=== PATIENT | female | born 1980 | race Caucasian/White ===

== ENCOUNTER 2024-05-17 08:00 | Outpatient (RCR) | payer BC, SELFPAY ==
--- NOTE | 2024-05-17 09:50 | BH.NA_ITS ---
Physical Data Vital Signs Pulse Rate: 72 Blood Pressure: 136/88 Height/Weight Height: 1.6 m Weight:: 108.862 kg Weight in Pounds: 240.0 lbs Current Medication Compliance Medication Compliance Do you take your medication as prescribed?: Yes Nutritional History Appetite Nutritional Instructions: Describe your appetite:: Good Functional Assessment Sleep Pattern Describe any problems with sleeping: Client states she sleeps about 10 hours per night. Sensory/Communication Assess Communication Problems Do you have difficulty understanding what people are saying?: No Medical Problems/History Respiratory Conditions Respiratory: Other (See comments) (JAN with use of cpap) Neurological Conditions Neurological: Headaches Gastrointestinal Conditions Gastrointestinal: Other (See comments) (GERD) Pain Assessment Do you have acute or chronic pain?: No Surgical History Surgical History Have you had any surgeries? If so, list type and date:: No Substance Abuse Substance Abuse Please describe substance abuse in the last 30 days:: Client states she previously used to binge drink alcohol, but states she has been sober for 2 years. Client states she vapes nicotine and has for 6+ years used tobacco. Client states she used to vape THC but states she stopped 2 weeks ago. Client states she drinks about 2-3 drinks per day with caffeine, usually either coffee or pop. Mental Status Summary Mental Status Significant Findings/Observations on Appearance and Mood:: Client is alert and oriented x 4. Client is casually groomed. Client is cooperative with assessment. Client makes good eye contact. Client's voice has normal rate and volume. Client has a somewhat restricted affect. Client makes logical associations and has normal processing. Client denies delusions/hallucinations. Client reports some intrusive SI, but states she does not like having these thoughts and has no intent or plan. Suicide Assessment Suicidal Ideation Are you currently or have you been suicidal in the past?: Yes Suicidal Intentional Rating Scale (SIRS): Current suicidal thoughts/No plan/Contracts for safety (intrusive thoughts, no plan or intent) Physician Notification Past Psychiatric History MH Treatment Hx Past Psychiatric Medications:: Buspar, Celexa, Lexapro, Viibyrd, Strattera, Abilify, Seroquel, Zyprexa, Luvox, others Age of first mental health symptoms: Client states she was first on medication at age 16 for depression and panic attacks. Describe (age, circumstance, etc) any past hospitalizations: a residential program in October 2021- January 2022, one hospitalization in [place] in 2021 Current providers for mental health treatment (counselor, psychiatrist, family service caseworker, etc.): Bryan Barrera at [facility], Derrick Dillard CNP at [facility] for psychiatry Fall Risk Assessment Age Age: Less than 60 Mental Status Mental Status: Willing & able to ask for assistance when needed Physical Status Physical Status: No problems Impairments Impairments: None Elimination Elimination: Continent AND independent Gait or Balance Gait or Balance: Walks independently Hx of Falls History of falls in the past 6 months: No known history Medications/Substances Psychotropics:: Antidepressants and Mood stabilizers Medications/substances used within the past 24 hours or ordered to administer: 1-2 of the medications/substances listed above Total Score Total Points:: 1 RN Summary of Impressions Impressions Recommendations Impressions: Psychiatric Issues: major depressive disorder, generalized anxiety disorder Level of Care How do the client's current symptoms and functional deficits support need for this level of care?: Client was self-referred to IOP for recent panic attacks and anxiety. Client states she has been on leave from work for 3 weeks now related to panic attacks before or after work. Client states her medications have been adjusted by her outpatient provider in the last week, and she has not had a panic attack in the last week. Client states she has been sleeping a lot, not enjoying activities she usually does, has crying spells and is isolating herself at home. Client reports some intrusive suicidal thoughts but states I don't want to have them, I don't want to hurt myself. IOP will promote gains and prevent further decompensation while providing social support and skills training.
--- NOTE | 2024-05-17 10:15 | BH.SGPN.GN ---
Behaviors/Verbalizations/Mental Status: []Pt alert and oriented, neatly dressed and groomed. Eye contact good. Motor activity appropriate. Speech within normal limits. Affect congruent, mood anxious. Thoughts linear, logical, no signs of hallucinations or delusions. Client Response/Progress/Benefit: [] Pt took notes and contributed occasionally. Attentive during psychoeducation on growth mindset. Participated during the activity. Interactive group discussion on growth mindset in which group verbalized their current fixed mindsets and how they affect their mental health. Pt shared common fixed mindset thoughts they have which included I?m a failure, I should be better, no one really likes me, and I don?t fit in.? These thoughts lead to low self-esteem, anxiety and worry, and difficulty in relationships. Pt benefited from increased awareness of growth mindset and fixed thoughts and how fixed thoughts impact their mental health. Will continue IOP tx to prevent decompensation, maintain safety, and gain healthy coping skills. Narrative Note: []
--- NOTE | 2024-05-17 11:15 | BH.SGPN.GN ---
Behaviors/Verbalizations/Mental Status: []Pt alert and oriented, casually dressed and groomed. Eye contact good. Motor activity appropriate. Speech within normal limits. Affect congruent, mood depressed, anxious. Thoughts linear, logical, no signs of hallucinations or delusions. Client Response/Progress/Benefit: [] Pt was an active participant during activity and discussion. Pt did well to remain attentive and participate as group worked on identifying characteristics and benefits of adopting a growth mindset. Worked with fellow participants in reframing the example fixed thoughts into growth mindset thoughts. Pt worked on changing own fixed thought and reframed the thought to ?Each day I show up for treatment is a chance to feel better?. Pt appeared to benefit from challenging own thoughts and engaging in the activity. Pt will continue IOP tx to prevent decompensation, improve confidence and self-care, and gain healthy coping skills. ? Narrative Note: []
[2024-05-17 11:36] VITALS: BP 136/88; PULSE 72
--- NOTE | 2024-05-17 12:02 | BH.MTP_ITS ---
Master Treatment Plan Patient Information Program Physician:: Dr. Patti Alvarez Primary Therapist:: Padmini Matias Psychiatric Diagnoses Psychiatric Diagnoses:: Major depressive disorder, recurrent, severe without psychosis F 33.2; Generalized anxiety disorder; Panic disorder; Cluster B traits Diagnosis Code(s):: F 33.2 Estimated LOS Estimated LOS (in weeks):: 6 Problem/Goal #1 Problem/Goal #1 Stated Goal:: Pt will increase mood stability by reducing hopelessness, worthlessness, negative thinking patterns, and isolation. Description of Barriers: Pt reports negative self-talk with low self-esteem which reinforces avoidance and isolation. Pt also has not had energy or motiv ation to engage with friends and family. Pt reports knowledge of coping skills but difficulty remembering which ones to use. Functional Impact: Pt is a 44-year-old female with a history of MDD, AMRITA, and panic disorder who was referred to [facility] tx by herself due to worsening depression and anxiety which is impacting functioning. Pt is currently on FMLA due to her worsening symptoms which include panic attacks resulting in numerous call offs. Pt currently endorses poor sleep, low energy, low motivation, hopelessness, anhedonia, isolation, crying spells, and avoidance. Pt has passive thoughts of , but no SI or history of attempts. Pt's symptoms are interfering with her ability to complete ADLs and function at her baseline. Goal Relevant Strengths/Supports: Pt has outpatient therapy and psychiatry. 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 Objectives Objective #1: Stated Objective: Pt will learn and utilize 2-3 healthy coping strategies to better manage depressive symptoms and reduce suicidal ideations as shown by a decrease of DMS-5 symptoms for depression. Interventions: Through group and individual sessions, therapist will help pt identify triggers and warning signs of depression including emotional, physical, and behavioral changes. Therapist will teach pt various coping skills to manage symptoms and give pt tangible resources to use to regulate emotions. Therapist will use cognitive restructuring techniques and help pt gain awareness of negative thoughts that reinforce guilt and depression. Therapist will provide psychoeducation on maintenance cycles and help pt learn ways to break unhealthy maintenance cycles. Therapist will help pt incorporate behavioral activation and assist pt in setting SMART goals. Discharge Criteria: Pt will have met this goal when can report learning and using at least 2 coping skills to manage depressive symptoms and reduce isolation. Additionally, pt will have met this goal when pt's DSM-5 scores for depression decrease. Target Date: 06/28/24 Review Date: 06/07/24 Status: open Objective #2: Stated Objective: Pt will identify at least 2-3 negative self-talk messages used to reinforce negative core beliefs, worthlessness, and isolation and replace thoughts with balanced, realistic messages. Interventions: Therapist will help pt identify distorted, negative beliefs about self and replace with more realistic, affirmative messages. Therapist will use CBT and DBT to help pt increase insight to the connection between thoughts, emotions, and behaviors. Therapist will encourage pt to practice thought challenging. Discharge Criteria: Pt will have achieved this goal when can verbalize at least 2 cognitive distortions and effectively replace those thoughts with affirmative messages. Target Date: 06/28/24 Review Date: 06/07/24 Status: open Problem/Goal #2 Problem/Goal #2 Stated Goal:: Will reduce anxiety and panic while increasing ability to function on daily basis. Description of Barriers: Pt reports negative self-talk with low self-esteem which reinforces avoidance and isolation. Pt also has not had energy or motivation to engage with friends and family. Pt reports knowledge of coping skills but difficulty remembering which ones to use. Functional Impact: Pt is a 44-year-old female with a history of MDD, AMRITA, and panic disorder who was referred to [facility] tx by herself due to worsening depression and anxiety which is impacting functioning. Pt is currently on FMLA due to her worsening symptoms which include panic attacks resulting in numerous call offs. Pt currently endorses poor sleep, low energy, low motivation, hopelessness, anhedonia, isolation, crying spells, and avoidance. Pt has passive thoughts of , but no SI or history of attempts. Pt's symptoms are interfering with her ability to complete ADLs and function at her baseline. Goal Relevant Strengths/Supports: Pt has outpatient therapy and psychiatry. 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 Objectives Objective #1: Stated Objective: pt will learn and implement 2-3 calming skills to reduce overall anxiety and manage anxiety symptoms. Interventions: Therapist and group sessions will help client identify physiological warning signs of anxiety, increase awareness of thoughts that increase anxiety, and identify behaviors that reinforce anxious symptoms. Group and individual counseling will teach client calming skills to help manage anxious symptoms. Discharge Criteria: Pt will have achieved this goal when can verbalize at least 2 calming skills and reports skills successfully help reduce anxious symptoms. Target Date: 06/28/24 Review Date: 06/07/24 Status: open Objective #2: Stated Objective: Pt will increase ability to manage stressors and anxiety by gaining 2-3 emotional regulation skills. Interventions: Through group and individual therapy, pt will learn various coping skills to help manage stress and anxiety. Therapist will utilize DBT emotional regulation skills to increase awareness and give pt tools to more effectively manage anxiety. Therapist will provide psychoeducation on emotional regulation and help pt identify unhealthy coping skills she wants to change. Discharge Criteria: Pt will have accomplished this goal when can report improved ability to manage stressors and identify at least 2 emotional regulation skills. Target Date: 06/28/24 Review Date: 06/07/24 Status: open
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
--- NOTE | 2024-05-17 12:46 | BH.DR.ITP ---
Initial Treatment Plan Patient Information Visit Information: ADMISSION DATE: EXPECTED LOS: 4-6 weeks Problems/Symptoms Problem #1:: Depression Symptom:: Sadness, hopelessness, low motivation, anhedonia, biological disruption of sleep, low energy, guilt, passive thoughts of , recent thoughts of self-harm, passive, fleeting suicidal ideation Problem #2:: Anxiety Symptom:: Worry, rumination, recent panic attacks
--- NOTE | 2024-05-17 15:46 | BH.COMM_ITS ---
Communication Note Communication with Client Communication Note: Met with pt to complete initial paperwork and administer the CSSR-S screening and risk assessment. Pt is low-moderate risk as pt has history of suicidal ideations with thoughts of methods and she wrote a suicide note when she was young. However, pt has never had a suicide attempt and denies any active SI within the past month. Pt has passive SI within the past month, but no intent or plan. Pt reports she does not want to kill herself and describes her SI as intrusive thoughts that are ego-dystonic. History of self-harm by cutting, but she has never needed stitches. Pt has no access to weapons. Pt a Discussed case with Dr. Alvarez and pt will be admitted to [facility] tx with a diagnosis of MDD F33.2.
--- NOTE | 2024-05-19 09:01 | BH.SGPN.GN ---
Behaviors/Verbalizations/Mental Status: []Pt alert and oriented, casually dressed and groomed. Eye contact good. Motor activity appropriate. Speech within normal limits. Affect constricted. mood anxious. Thoughts linear, logical, no signs of hallucinations or delusions. Reviewed pt?s symptom tracker, no risk for suicidal ideation, plan, or intent. Client Response/Progress/Benefit: []Pt responded well to session, attentive and engaged. Pt stated feeling stressed because she has a to-do list that can easily become overwhelming for her. Pt stated mental health positive as going to therapy yesterday improved her mood. Pt reported additional positive as taking a shower yesterday. Pt seemed to benefit from support from peers. Pt will continue IOP tx to increase healthy coping skills, challenge distortions, and prevent decompensation.
--- NOTE | 2024-05-19 10:15 | BH.SGPN.GN ---
Behaviors/Verbalizations/Mental Status: [] Eye contact is good. Motor activity is appropriate. Appearance is casual. Speech is Appropriate. Mood is depressed and anxious. Affect is congruent. Thoughts are linear and logical. No evidence of psychosis. Client Response/Progress/Benefit: [] Client receptive to session AEB listening attentively to others, providing input, and taking notes. Contributed and attentive throughout psychoeducation on the cognitive triangle and maintenance cycles. Attentive during group discussion reviewing the impact of daily activities and behaviors in either reinforcing unhealthy maintenance cycles and depression or assisting in reducing symptoms (?down? vs ?up? activities). Client identified personal ?down? activities they engage in as: excessive sleep, isolation, binge watching tv, and avoiding obligations. Attentive during discussion on Common ?Up? activities client identified theirs to include: completing hygiene routine and engaging with others. Appeared to benefit from increased awareness of current behaviors and impact these have on mental health. Will continue in IOP to stabilize mood, prevent decompensation, and improve functioning. Narrative Note: []
--- NOTE | 2024-05-19 11:15 | BH.SGPN.GN ---
Behaviors/Verbalizations/Mental Status: []Eye contact is good. Motor activity is appropriate. Appearance is neat. Speech is Appropriate. Mood is dysthymic. Affect is congruent. Thoughts are linear and logical. No evidence of psychosis. Client Response/Progress/Benefit: []Pt responded well to session, attentive and engaged in group discussions and activity. Group discussed values and the benefits that knowing one's values can have on one's mental health. Pt explored own values and identified personal top values. Pt stated a personally important value is family. Pt set a goal to make plans with her family member to get a pedicure this weekend. Pt also reported benefitting from the activity and the group encouragement today. Will continue in IOP to prevent decompensation, improve daily functioning, and increase application of healthy coping skills. Narrative Note: []
--- NOTE | 2024-05-21 09:00 | BH.SGPN.GN ---
Behaviors/Verbalizations/Mental Status: [] Pt alert and oriented, neatly dressed and groomed. Eye contact good. Motor activity appropriate. Speech within normal limits. Affect constricted mood anxious. Thoughts linear, logical, no signs of hallucinations or delusions. Reviewed pt?s symptom tracker, no risk for suicidal ideation, plan, or intent 05/21/24 Client Response/Progress/Benefit: []Pt responded well to session, attentive and engaged. Pt reports feeling anxious this morning. Pt reports wins today as using opposite action and getting to IOP each day she was signed up this week. Pt is doing well in IOP and working towards tx goals. Pt's stressor today is ongoing anxiety symptoms and nightmares. Pt appeared to benefit from reflecting on application of healthy coping skills and connecting with peers. Pt will continue IOP tx to prevent decompensation, improve daily functioning, and increase healthy coping skills. Narrative Note: []
--- NOTE | 2024-05-21 10:05 | BH.SGPN.GN ---
Behaviors/Verbalizations/Mental Status: [] Client alert and oriented, casually dressed and groomed. Eye contact good. Motor activity appropriate. Speech within normal limits. Affect congruent, mood euthymic. Thoughts linear, logical, no signs of hallucinations or delusions. Client Response/Progress/Benefit: []Client responded well to session, contributing to discussion and engaged during the activity. Attentive during discussion on the quote. Group identified the benefits of change which included: confidence better relationships, and improved mental health. Worked with the group to identify barriers to change, which included: anxiety and fear, confusion, external variables, and negative thinking. Client also reported reflected on past negative experiences can keep people from making changes. Client participated along with group in activity where they identified and discussed the emotions related to change. Benefited from increased awareness and understanding of emotions, benefits, and barriers related to change. Will continue IOP tx to increase emotional regulation skills and prevent decompensation. Narrative Note: [] Behaviors/Verbalizations/Mental Status: [] Client alert and oriented, casually dressed and groomed. Eye contact good. Motor activity appropriate. Speech within normal limits. Affect congruent, mood euthymic. Thoughts linear, logical, no signs of hallucinations or delusions. Client Response/Progress/Benefit: []Client responded well to session, contributing to discussion and engaged during the activity. Attentive during discussion on the quote. Group identified the benefits of change which included: confidence better relationships, and improved mental health. Worked with the group to identify barriers to change, which included: anxiety and fear, confusion, external variables, and negative thinking. Client also reported reflected on past negative experiences can keep people from making changes. Client participated along with group in activity where they identified and discussed the emotions related to change. Benefited from increased awareness and understanding of emotions, benefits, and barriers related to change. Will continue IOP tx to increase emotional regulation skills and prevent decompensation. Narrative Note: []
--- NOTE | 2024-05-21 12:02 | BH.MDN ---
Multi-Disciplinary Note Note 30-min Individual: Time Started:: 11:20 Date: 05/21/24 Purpose of session/treatment goals addressed:: To gather information on pt's current stressors, symptoms, triggers, history, and tx goals. Another goal was to build rapport and provide emotional support. Eye Contact:: Fair Motor Activity:: Appropriate Appearance:: Casual Speech:: Appropriate Mood:: Anxious and Depressed Affect:: Congruent Thoughts:: Linear, Logical and No evidence of hallucinations/delusions noted Staff Interventions:: rapport building, strengths perspective, treatment planning and goal setting Client Response:: Pt responded well to session, open to meeting with therapist. Pt shared she has had therapy in the past and found it helpful. Pt shared the triggers contributing to her worsening mental health over the past year which included being the caregiver for her mother, her dog passing away, and moving from [place] to [place]. Pt shared she has noticed that she is comparing herself to others her age and pt feels shame and upset that she did not follow the path laid out for me. Pt said this path would be getting and having kids. Pt shared she does not think she wants kids, but she finds herself feeling sad and overwhelmed when she sees other people with families. Pt recently had a crying episode when her stepsister announced her . Pt stated in general I have big reactions to small things and pt wants to learn how to manage this better. Pt also wants to work on gaining a community, reducing anxiety, refreshing skills, getting back into hobbies (crafting, reading, and photography), and increasing self-esteem. Pt shared in the past she has struggled with challenging negative thinking because it feels fake but pt is open to learning different techniques. Pt's homework is to write out her maintenance cycles for anxiety and depression. Risks/Concerns:: Pt has chronic SI that is passive, but she denies any SI, plan, or intent as of 05/21/24. Progress Toward Goals/Plan:: Pt's first week of IOP tx and pt feels she will benefit from not being alone and refreshing skills. Pt has an outpatient therapist she has been seeing biweekly for the past 4-6 weeks, but she feels like she is still struggling which is what led to IOP. Pt's symptoms are impacting her ability to enjoy things, be social, and perform tasks at work. Pt will continue IOP tx to prevent decompensation, improve daily functioning, and increase distress tolerance skills. Time Stopped:: 11:50
--- NOTE | 2024-05-24 09:05 | BH.SGPN.GN ---
Behaviors/Verbalizations/Mental Status: [] Eye contact is good. Motor activity is appropriate. Appearance is casual. Speech is Appropriate. Mood is anxious. Affect is congruent. Thoughts are linear and logical. No evidence of psychosis. Reviewed daily check in sheet and no reports of suicidal ideations or intent. Client Response/Progress/Benefit: [] Pt partiicpated when prompted. Attentive. Emotion for today is anxious. Identifies increased intrusive thoughts and mental health struggles. Able to identify skills that she utilized as well as obstacles to attempting certain strategies. Pt's check-in for group was short. Feeling hopeless and upset that she had to extend her FMLA and begin IOP as her mental health continue to impact her functioning. Limited progress noted. Benefited from group support, encouragement, and feedback. Will continue in IOP to maintain safety, prevent decompensation, increase healthy coping, and improve functioning. Narrative Note: []
--- NOTE | 2024-05-24 10:10 | BH.SGPN.GN ---
Behaviors/Verbalizations/Mental Status: []Eye contact is good. Motor activity is appropriate. Appearance is casual. Speech is Appropriate. Mood is anxious. Affect is constricted. Thoughts are linear and logical. No evidence of psychosis. Client Response/Progress/Benefit: [] Pt was an active participant in activity and taking notes during group discussion. Attentive during psychoeducation and interactive discussion on coping skills included why people use unhealthy skills. Group came up with list of unhealthy coping skills and pt identified personal ones as isolation and avoidance. Group discussed the effects of how unhealthy coping skills can impact mental health in a negative way. Participated during experiential activity and was able to relate the activity to group topic regarding the benefits of developing strong internal and external support system. Benefited from increased understanding of unhealthy coping skills and the need for developing healthy internal and external coping skills. Pt will continue IOP tx to improve distress tolerance, increase healthy coping, and prevent decompensation.
--- NOTE | 2024-05-24 11:15 | BH.SGPN.GN ---
Behaviors/Verbalizations/Mental Status: []Pt alert and oriented, casually dressed and groomed. Eye contact good. Motor activity appropriate. Speech within normal limits. Affect congruent, mood anxious and depressed. Thoughts linear, logical, no signs of hallucinations or delusions. Client Response/Progress/Benefit: [] Pt responded well to session, taking notes and contributing when prompted. Group discussed the different categories of coping skills which included distraction, emotional release, grounding, self-love, and thought challenging. Pt participated in creating a coping skills ?menu? from the five categories of coping skills. Pt's coping skill menu included: crafting, playing with miguel, giving herself credit, and decisional balance tool. Appeared to benefit from increasing repertoire of healthy coping skills. Will continue IOP to improve view of self, challenge distortions, and prevent decompensation. Narrative Note: []
--- NOTE | 2024-05-26 09:01 | BH.SGPN.GN ---
Behaviors/Verbalizations/Mental Status: [] Eye contact is fair. Motor activity is appropriate. Appearance is casual. Speech is Appropriate. Mood anxious. Affect is constricted. Thoughts are linear and logical. No evidence of psychosis. Reviewed daily check in sheet and no reports of suicidal ideations or intent. Client Response/Progress/Benefit: [] Pt was an active participant in group discussions. Attentive. Client stated current stressor is trying to figure out disability paperwork which she reported has been incredibly frustrating. Client stated feeling anxious, frustrated xochitl tired this morning. Client stated mental health positive as going to therapy yesterday which went better than she had thought. Client stated additional mental health positive as going to the store yesterday for her own enjoyment which is something she hasn't done in a long time. Client stated she allowed herself to explore different aisles instead of rushing she just get what she needed. Benefited from group support, encouragement, and feedback. Will continue in IOP to increase consistent use of healthy coping skills, challenge distorted thoughts, and prevent decompensation.
--- NOTE | 2024-05-26 10:10 | BH.SGPN.GN ---
Behaviors/Verbalizations/Mental Status: [] Eye contact is good. Motor activity is appropriate. Appearance is casual. Speech is Appropriate. Mood is anxious and depressed. Affect is congruent. Thoughts are linear and logical. No evidence of psychosis Client Response/Progress/Benefit: [] Client was an active participant during interactive group discussions. Attentive during psychoeducation on the six types of boundaries (physical, emotional, intellectual, sexual, time, and material) AEB note-taking and input in group discussions. Along with peers contributed to interactive discussion on defining what a boundary is in mental health. Client along with peers identified challenges to setting boundaries which included; fear of conflict, being uncomfortable, believing they are being rude or mean, etc. Reports struggling with fear of rejection or not knowing how to set it. Client along with peers identified the benefits to setting boundaries such as healthier relationships, stronger sense of self, and improved confidence. Client benefited from increased awareness and insight on the importance/benefit to setting healthy boundaries. Will continue in IOP to prevent decompensation, increase healthy coping skills and self-confidence, and improve functioning. Narrative Note: []
--- NOTE | 2024-05-26 11:15 | BH.SGPN.GN ---
Behaviors/Verbalizations/Mental Status: [] Eye contact is good. Motor activity is appropriate. Appearance is casual. Speech is Appropriate. Mood is depressed. Affect is congruent. Thoughts are linear and logical. No evidence of psychosis. Client Response/Progress/Benefit: []Pt responded well to session AEB listening attentively to peers, providing some input, as well as taking notes throughout. Pt contributed throughout psychoeducation on different boundary setting styles. Participated in group discussion brainstorming various strategies for improving healthy boundary settings. Pt reported wanting to work on self-reflecting so pt can have more self-awareness of her own boundaries which will make it easier to verbalize to others. ?Seemed to benefit from increased awareness of how different boundary styles can impact mental health. Will continue IOP tx to prevent decompensation, improve daily functioning, and increase application of heathy coping skills. Narrative Note: []
--- NOTE | 2024-05-28 09:05 | BH.SGPN.GN ---
Behaviors/Verbalizations/Mental Status: []Pt alert and oriented, neatly dressed and groomed. Eye contact fair. Motor activity appropriate. Speech within normal limits. Affect flat. mood depressed and irritable. Thoughts linear, logical, no signs of hallucinations or delusions. Reviewed pt?s symptom tracker, no risk for suicidal ideation, plan, or intent 05/28/24 Client Response/Progress/Benefit: []Pt responded well to session, attentive and engaged. Pt reports feeling irritable and frustrated this morning which pt feels is caused by being on steroids. Pt acknowledged that when she is irritable she is more negative with herself. Pt stated wins today as showing up to IOP when she wanted to cancel and getting her craft area set up so she can get back into her old hobbies. Pt's stressor is feeling irritable and having difficulty managing this emotion. Pt appeared to benefit from reflecting on application of coping skills and connecting with peers. Pt will continue IOP tx to prevent decompensation, improve daily functioning, and increase distress tolerance skills. Narrative Note: []
--- NOTE | 2024-05-28 10:15 | BH.SGPN.GN ---
Behaviors/Verbalizations/Mental Status: [] Eye contact is good. Motor activity is appropriate. Appearance is casual. Speech is Appropriate. Mood is depressed and anxious. Affect is congruent. Thoughts are linear and logical. No evidence of psychosis. Client Response/Progress/Benefit: [] Attentive and taking notes throughout the group discussions. Attentive during psychoeducation on the 4 communication styles (Passive, Passive-Aggressive, Aggressive, and Assertive) and the obstacles to effective communication. Attentive during interactive discussion on the benefits of communicating effectively, as well as the benefits and disadvantages to the different communication styles. Reports connecting most with passive styles which results in pt not having her needs met. Benefited from increased understanding of communication styles and how these can impact effective communication. Will continue in IOP to prevent decompensation, increase healthy coping, and improve functioning. Narrative Note: []
--- NOTE | 2024-05-28 13:48 | BH.MDN ---
Multi-Disciplinary Note Note 45-min Individual: Time Started:: 11:15 Date: 05/28/24 Purpose of session/treatment goals addressed:: To work on goal #2 of pt's tx plan by increasing emotional regulation and distress tolerance skills. Eye Contact:: Good Motor Activity:: Appropriate Appearance:: Neat Speech:: Appropriate Mood:: Anxious and Depressed Affect:: Constricted Thoughts:: Linear, Logical and No evidence of hallucinations/delusions noted Staff Interventions:: thought challenging, CBT techniques, mindfulness skills, strengths perspective, goal setting, taught coping skills (acceptance skills) and other (DBT techniques) Client Response:: Pt responded well to session, open to meeting with therapist. Last session, pt identified tx goals for IOP which centered around pt finding more confidence and self-esteem, regulating her emotions, and feeling prepared to return to work. Pt shared what triggered her most recent depressive episode was not fitting in with the rest of my family and my peers in terms of life milestones (kids, family, etc). Pt finds she often criticizes herself and gets upset with herself even when she feels certain emotions. Pt stated she will get frustrated with herself for feeling anything but happy really. Pt reported this could be from her upbringing and growing up in a household where anger, anxiety, and sadness were either not managed well or ignored. Pt identified some of the emotions she has a personal stigma towards feeling including anger, anxiety, boredom, and sadness. Pt did well with the chain analysis and we discussed how judging these emotions leads to lack of acceptance and ultimately pt being stuck in the emotion longer. Pt could identify several recent examples of how her internalization of being angry led to her being upset all day and then self-criticism. Pt also did a chain analysis for anxiety and sadness. Pt reports this helped her see what behaviors she can change to help pt prevent more unnecessary stress from occurring in her chain analysis and creating a healthier path. Pt came up with ideas for when she is sad including opposite action and getting out of the house. 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 Risks/Concerns:: Pt denies any active SI, plan, or intent as of 05/28/24. Progress Toward Goals/Plan:: Pt's progress is mild as pt recently started IOP tx. Pt is showing progress with her engagement and contributions during group and individual sessions. Pt reports benefitting from the group environment and being around others who understand mental health. Pt also reports trying to apply the coping skills outside of IOP. Pt's symptoms of depression, anxiety, and [id number] continue to impact pt on a daily basis. Pt's biggest stressors are returning to work, regulating her emotions, fitting in with her family, and internal stigma. Pt will continue IOP tx to prevent decompensation, improve daily functioning, and increase use of healthy coping skills. Time Stopped:: 12:00
== END 2024-05-30 23:59 ==
LOC: BHIOP 08:00
PROVIDERS: Visit Provider Psychiatry & Neurology Psychiatry
DX: F33.2 Major depressive disorder, recurrent severe without psychotic features (principal)
CPT/HCPCS: S9480; 90832; 90834; 90853

== ENCOUNTER 2024-05-31 07:15 | Outpatient (RCR) | payer BC, SELFPAY ==
[2024-05-31 00:26] VITALS: BP 136/88; PULSE 72
--- NOTE | 2024-05-31 09:00 | BH.SGPN.GN ---
Behaviors/Verbalizations/Mental Status: [] Eye contact is good. Motor activity is appropriate. Appearance is casual. Speech is Appropriate. Mood is depressed. Affect is flat. Thoughts are linear and logical. No evidence of psychosis. Reviewed daily check in sheet and pt reports 1.5 for suicidal thoughts and 0/5 for intent. Client Response/Progress/Benefit: [] Pt participated when prompted. Attentive. Daily symptom tracker notes 4/5 for depression and 3/5 for anxiety/agitation. Pt states I'm not making progress. Elaborated on negative self-talk as well as depression. Frustrated, irritable , and anxious feeling as if I'm not getting well. Catastrophizing about her job and her future. No progress noted. Group provided support, empathy, and feedback. Peers worked to reframe and challenging cognitive distortions which was beneficial. Pt was able to see progress towards the end of the group with the help of peer assitance. Will continue in IOP to maintain safety, prevent decompensation, and stabilize mood. Narrative Note: []
--- NOTE | 2024-05-31 10:10 | BH.SGPN.GN ---
Behaviors/Verbalizations/Mental Status: [] Pt alert and oriented, appropriate grooming/appearance. Eye contact good. Motor activity appropriate. Speech within normal limits. Affect congruent, mood euthymic. Thoughts linear, logical, no signs of hallucinations or delusions. Client Response/Progress/Benefit: [] Pt was an active participant in group discussions. Attentive during psychoeducation. Contributed during interactive discussions in which peers attempted to define crisis. Group identified examples of potential crisis. Group also worked together to identify unhealthy responses to crisis which included lashing out, isolation, self-harm, substance abuse, and sleep disturbances. Pt identified personal warning signs as racing thoughts and tearfulness. Benefited from increased understanding of crisis and awareness of personal responses to crisis. Pt will continue IOP tx to increasing healthy coping skills and prevent decompensation. Narrative Note: []
--- NOTE | 2024-05-31 11:10 | BH.SGPN.GN ---
Behaviors/Verbalizations/Mental Status: [] Pt alert and oriented, appropriate grooming/appearance. Eye contact good. Motor activity appropriate. Speech within normal limits. Affect congruent, mood euthymic. Thoughts linear, logical, no signs of hallucinations or delusions. Client Response/Progress/Benefit: [] Pt was an active participant in group discussions. Attentive during psychoeducation. In small group pt along with peers developed an active plan for their crisis warning signs. Pt identified three crisis warning signs as well as an action plan for each. One crisis warning sign was racing thoughts. Pt identified coping skills to help with this such as: deep breaths, guided meditation, support person, and identification of cognitive distortions. Benefited from increased awareness of crisis warning signs and by developing crisis intervention strategies. Will continue in IOP to prevent decompensation, increase health thought processes, and gain healthy coping skills. Narrative Note: []
--- NOTE | 2024-06-02 09:05 | BH.SGPN.GN ---
Behaviors/Verbalizations/Mental Status: [] Eye contact is good. Motor activity is appropriate. Appearance is casual. Speech is Appropriate. Mood is depressed. Affect is flat. Thoughts are linear and logical. No evidence of psychosis. Reviewed daily check in sheet and pt reports 1/5 for suicidal ideations and 0/5 for intent. Client Response/Progress/Benefit: [] Pt participated when prompted. Attentive. Daily symptom tracker notes 2/5 for depression and anxiety. Also notes 1/5 for self-harm urges. Pt reports that she is struggling to ?connect with people?. ? Something is wrong with my brain?. Hopelessness regarding her mental health. Thoughts that she will never get better or return to work. She continues to report attempting to work on mental health daily. She opened up regarding her mental health with her father and ?had a good conversation?. Attempting to be more vulnerable and seeking support/help. Limited progress noted. Benefited from group support, encouragement, and feedback. Will continue in IOP to maintain safety, prevent decompensation, and improve functioning to return to work. Narrative Note: []
--- NOTE | 2024-06-02 10:10 | BH.SGPN.GN ---
Behaviors/Verbalizations/Mental Status: [] Eye contact is fair. Motor activity is appropriate. Appearance is casual. Speech is Appropriate. Mood is dysthymic. Affect is constricted. Thoughts are linear and logical. No evidence of psychosis. Client Response/Progress/Benefit: [] Pt receptive to session AEB contributing to small group discussion, as well as listening attentively to others, and taking notes. Worked with group to brainstorm the positive and negative aspects of stress on physical and mental health as well as the impact of distress on performance, relationships, and mental health. Pt shared her top stressors to be: work, daily obligations, and mental health struggles. Shared when feeling overwhelmed with stress she tends to isolate, avoid, and talk negatively to self. Benefited from increased awareness of positive and negative stress as well as how stress impact individuals. Will continue in IOP to increase healthy coping, challenge distortions, and prevent decompensation.
--- NOTE | 2024-06-02 11:10 | BH.SGPN.GN ---
Behaviors/Verbalizations/Mental Status: []Pt alert and oriented, casually dressed and groomed. Eye contact good. Motor activity appropriate. Speech within normal limits. Affect congruent, mood anxious, agitated. Thoughts linear, logical, no signs of hallucinations or delusions. Client Response/Progress/Benefit: [] Pt was an attentive and active participant in group discussions and experiential activity, doing well to regulate their emotions throughout the activity and work with peers. Attentive during psychoeducation on the 4 A's (Avoid, adapt, alter, accept) of coping with stress. Shared that they would benefit most from altering her expectations of herself and work towards accepting what is within her control and what is not regarding her current stressors. Was able to identify the connection between the experiential activity and utilization of stress management skills. Benefited from increased awareness of stress management strategies. Pt will continue IOP tx to prevent decompensation, improve daily functioning, and increase self-compassionate responses. Narrative Note: []
--- NOTE | 2024-06-04 10:10 | BH.SGPN.GN ---
Behaviors/Verbalizations/Mental Status: []Eye contact is fair. Motor activity is appropriate. Appearance is casual. Speech is Appropriate. Mood is dysthymic. Affect is constricted. Thoughts are linear and logical. No evidence of psychosis. Client Response/Progress/Benefit: [] Pt was an engaged participant AEB listening attentively to others, taking notes, and providing feedback in small group discussions. Attentive during psychoeducation AEB by note taking and providing some input. Pt worked along with peers in small groups to define inappropriate guilt and appropriate guilt. Interactive discussion on examples of both inappropriate and appropriate guilt. Pt able to connect impact inappropriate guilt can have on MH. Pt gave an example of having inappropriate guilt about taking on responsibility for her mom's emotions. Benefited from increased awareness of guilt and the differences between appropriate and inappropriate guilt. Will continue in IOP to challenge distorted thoughts, improve confidence, and prevent decompensation.
--- NOTE | 2024-06-04 11:15 | BH.SGPN.GN ---
Behaviors/Verbalizations/Mental Status: []Pt alert and oriented, casually dressed and groomed. Eye contact poor. Motor activity appropriate. Speech within normal limits. Affect congruent, mood calm. Thoughts linear, logical, no signs of hallucinations or delusions. Client Response/Progress/Benefit: []Pt engaged participant AEB listening attentively to others and providing input throughout group. Pt worked within their small group to identify strategies to manage inappropriate guilt. Pt worked with group to identify strategies for both appropriate and inappropriate guilt. Pt selected challenging emotional reasoning when she feels inappropriate guilt by reminding herself ?just because I feel this doesn?t mean I did something wrong.? Pt seemed to benefit from learning about strategies to manage appropriate and inappropriate guilt. Pt will continue IOP tx to help pt get back to work, reduce negative thinking patterns, and improve mood stability. Narrative Note: []
--- NOTE | 2024-06-04 14:52 | BH.MDN_ITS ---
Multi-Disciplinary Note Note 30-min Individual: Time Started:: 09:15 Date: 06/04/24 Purpose of session/treatment goals addressed:: To work on combatting distorted thinking patterns and increasing self-compassion through dialectical thinking. Eye Contact:: Good Motor Activity:: Appropriate Appearance:: Neat Speech:: Appropriate Mood:: Euthymic and Anxious Affect:: Congruent Thoughts:: Linear, Logical and No evidence of hallucinations/delusions noted Staff Interventions:: thought challenging, CBT techniques, mindfulness skills (discussion of mindfully feeling emotions but not over-identifying.), strengths perspective and other (dialectical thinking practice.) Client Response:: Pt responded well to session, open to meeting with therapist. Pt reports she has been struggling with feeling certain emotion without becoming angry or lashing out at herself. The emotions pt identified included anger, boredom, sadness, and anxiety. Discussed why these emotions are hard for pt to express, which pt responded is due to her upbringing. Pt shared these emotions were either ignored, viewed as bad, or resulted in some form of conflict. Pt reports she tends to feel shame when she feels these emotions which then leads to more depression, anxiety, and anger. Discussed pt's current response to these emotions and then how she would like to respond to these in the future. Pt receptive to learning about mindfully feeling emotions instead of over-identifying with them which maintains unhealthy cycles. Discussed the self- talk pt can use when she feels anger, such as I'm allowed to feel anger, it's not a bad feeling. Pt also reminded to utilize coping skills like deep breathing, opposite action, and being vulnerable to be avoid over-identifying with her emotions. Also discussed how pt can be a good person, good caregiver, and still feel frustrated with her mother and her situation. pt receptive to practicing these self-talk skills and learning more about not judging her emotions. Pt also discussed her worries about going back to work and needing accommodations. Pt receptive to reflecting for homework on possible accommodations she might want such as getting more breaks. Risks/Concerns:: Pt denies any active SI, plan, or intent. Progress Toward Goals/Plan:: Progress mild as pt reports difficulty challenging negative self-talk which reinforces depression and anger. Pt is consistently coming to IOP and she takes extensive notes which could help pt make progress. Pt is also receptive to feedback from peers and in individual sessions pt completes homework. Pt is doing well with applying coping skills outside of IOP which is positive. Pt's symptoms continue to impact her overall functioning including her ability to regulate emotions with her mother. Pt feels she will need accommodations when she returns to work and this therapist agrees. Pt will continue IOP tx to prevent decompensation, improve daily functioning, and increase distress tolerance skills. Time Stopped:: 09:50
--- NOTE | 2024-06-07 09:05 | BH.SGPN.GN ---
Behaviors/Verbalizations/Mental Status: [] Eye contact fair to good. Motor activity appropriate. Speech within normal limits. Affect congruent, mood dysthymic, agitated. Thoughts linear, logical, no signs of hallucinations or delusions. Reviewed client?s symptom tracker, SI reported as 1/5 which is within baseline, denies plan, or intent as of 06/07/2024. Client Response/Progress/Benefit: [] Client receptive of session, attentive and willing to process with group. Reports sx of anxiety ?(3/5) and depression (3/5) and agitation (3/5) per daily sx tracker. ?Identified mental health ?wins? as challenging herself to use several skills when out with her mom throughout the weekend. Reports managing her emotions during these times is an ongoing stressor as she is struggling with becoming frustrated while providing support for her mom who has several physical limitations. Pt noted guilt when feeling frustrated about this but is doing well to work on self-compassion and challenge inappropriate guilt. Provided an example of not allowing herself to say sorry more than once when accidentally spilling something while at lunch with her mother. Indicates in the past she would have apologized profusely. Additional win noted as challenging herself to be proactive and contact the pharmacy about a medication issue to avoid an additional unnecessary stressor down the road. Reports this was anxiety inducing but she was proud of herself for doing the uncomfortable thing. Receptive of encouragement and support from the group, as well as identified a desire to get back into hobbies she enjoys as self-care has recently been lacking. Recommended continued IOP tx to further improve mood stability, promote skill building and application, as well as prevent decompensation. Narrative Note: []
--- NOTE | 2024-06-07 10:11 | BH.SGPN.GN ---
Behaviors/Verbalizations/Mental Status: [] Pt alert and oriented, casually dressed and groomed. Eye contact good. Motor activity appropriate. Speech within normal limits. Affect full, mood euthymic. Thoughts linear, logical, no signs of hallucinations or delusions. Client Response/Progress/Benefit: [] Pt participated in group discussion. Group worked together to identify benefits of healthy relationships which included encouragement, motivation, accountability, connectedness and minimized stress. Group identified factors that lead to unhealthy relationships which included low self esteem, trauma, lack of communication, parent's relationships growing up, and substance use. Benefited from increased insight and awareness of benefits of healthy relationships and factors that contribute to unhealthy relationships. Will continue in IOP to increase consistent use of healthy coping skills, challenge negative thoughts, and prevent decompensation. Narrative Note: [] Behaviors/Verbalizations/Mental Status: [] Pt alert and oriented, casually dressed and groomed. Eye contact good. Motor activity appropriate. Speech within normal limits. Affect full, mood euthymic. Thoughts linear, logical, no signs of hallucinations or delusions. Client Response/Progress/Benefit: [] Pt participated in group discussion. Group worked together to identify benefits of healthy relationships which included encouragement, motivation, accountability, connectedness and minimized stress. Group identified factors that lead to unhealthy relationships which included low self esteem, trauma, lack of communication, parent's relationships growing up, and substance use. Benefited from increased insight and awareness of benefits of healthy relationships and factors that contribute to unhealthy relationships. Will continue in IOP to increase consistent use of healthy coping skills, challenge negative thoughts, and prevent decompensation. Narrative Note: []
--- NOTE | 2024-06-07 11:11 | BH.SGPN.GN ---
Behaviors/Verbalizations/Mental Status: [] Pt alert and oriented, casually dressed and groomed. Eye contact fair. Motor activity appropriate. Speech within normal limits. Affect full, mood euthymic, Thoughts linear, logical, no signs of hallucinations or delusions. Client Response/Progress/Benefit: [] Client responded well to session, engaged and taking notes throughout. Worked with group to connect components of the experiential activity with characteristics of healthy and unhealthy relationships. Attentive during psychoeducation about characteristics of healthy, unhealthy, and abusive relationships. Client reported she would like to continue to improve with communication in healthier ways with all of her relationships. Appeared to benefit from identifying current healthy relationship attributes and an area client wants to work on to build healthier relationships. Client to continue IOP to increase healthy coping skills, increase overall functioning, and prevent decompensation. Narrative Note: []
--- NOTE | 2024-06-09 11:05 | BH.SGPN.GN ---
Behaviors/Verbalizations/Mental Status: []Pt alert and oriented, neatly dressed and groomed. Eye contact good. Motor activity appropriate. Speech within normal limits. Affect congruent, mood depressed. Thoughts linear, logical, no signs of hallucinations or delusions. Client Response/Progress/Benefit: []Pt responded well to session, engaged in the experiential activity and attentive throughout group processing. Pt reported fear of failure has kept pt from going after jobs she wants. Pt completed fear of failure worksheet and was able to identify thoughts and behaviors that reinforce personal fear of failure including not feeling good enough, avoidance, and playing it safe. ?Pt participated in group discussion regarding strategies to overcome fear of failure. Identified wanting to work on asking for help and challenging negative thoughts. Appeared to benefit from increased knowledge of strategies to combat fear of failure and gaining self-awareness. Pt will continue IOP tx to promote mood stability, combat distortions, and improve emotional regulation skills. Narrative Note: []
--- NOTE | 2024-06-09 11:33 | PCM.BH.PN ---
Progress Note Progress Note: History of Present Illness/Interim History: Patient is a 44-year-old single, female with a history of depression, anxiety and PTSD who is seen in follow-up at the [facility] health [facility] where she is being treated for depression and anxiety. 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 I last saw the patient 3 weeks ago and at that time no medication changes were made as the Pristiq had been increased 1 week prior to that visit. According to the staff the patient has been consistent in her attendance and engaged in the program. She has made slight progress but still has a lot of negative self talk and rumination that have caused her anxiety and depression to persist somewhat. She has had thoughts of self-harm recently but says she only rarely now has suicidal ideation. She wakes up off-and-on during the night but gets back to sleep but states that she does not feel rested because she is waking up so much. He does have sleep apnea and is using her CPAP. The patient states that she still having panic attacks, avoidance and occasional hopelessness. She states last week she had 2 panic attacks and 1 episode of self-harm this morning where she stabbed her arm with a fork on her left forearm. It is visible and does not appear to be deep puncture wounds from the fork. She still has crying episodes and occasional hopelessness. She no longer is having passive thoughts of . She has a history of chronic, passive suicidal ideation and chronic thoughts of self-harm. She still denies active suicidal ideation, plan for suicide, homicidal ideation, hallucinations or delusions. Current Psychiatric Medications: [] Pristiq 100 mg p.o. daily (increased dose 1 month ago); Lamictal 25 mg twice daily; clonidine 0.2 mg twice daily; Klonopin 0.5 mg twice daily but she only takes it either once twice or 0 times a day. Mental Status Examination: [] The patient is an obese, female who appears normal for stated age and is casually dressed and groomed with good hygiene. She has no psychomotor agitation or retardation and is ambulatory with a normal gait. Eye contact is good and speech is normal rate and rhythm and fluent with no pressure. Mood is depressed and anxious. Affect is constricted. Thought process is goal-directed and organized. Thought content: There is evidence of thoughts and actions of self-harm. There is no evidence of passive thoughts of , active suicidal ideation, hallucinations or delusions. Reality testing is intact. Judgment is intact. Intelligence is above average. Insight Limited but some present. Impulsivity is high. Diagnoses: [] 1. Major depressive disorder, recurrent, moderate 2. Generalized anxiety disorder 3. Panic disorder 4. Strong cluster B traits 5. Primary support issues Plan: [] The patient will continue the [facility] and behavioral health at [facility] as the structure, support, education and group therapy will hopefully prevent worsening of the patient's symptoms which could require hospitalization. She felt safe during the interview and if it anytime she does not feel safe she agrees to let us know or go to the emergency room. Trazodone was added today 50 mg p.o. nightly to help with sleep as it has helped her in the past. She thinks her outpatient provider will increase her Lamictal tomorrow to 100 mg total daily (50 mg p.o. twice daily) and she wishes to wait till she sees them tomorrow to make this change. She agrees to continue to follow-up with her outpatient providers and I will see the patient in follow-up in several weeks. She also agrees to try to keep regular sleep-wake hours.
--- NOTE | 2024-06-09 15:01 | BH.MDN_ITS ---
Multi-Disciplinary Note Note 30-min Individual: Time Started:: 09:10 Date: 06/09/24 Purpose of session/treatment goals addressed:: To work on goal #1 of pt's tx plan and to learn about radical acceptance skills. Eye Contact:: Good Motor Activity:: Appropriate Appearance:: Casual Speech:: Soft Mood:: Irritable and Depressed Affect:: Constricted Thoughts:: Linear, Logical and No evidence of hallucinations/delusions noted Staff Interventions:: thought challenging, CBT techniques, mindfulness skills, strengths perspective, reviewed DSM-5, goal setting, taught coping skills (radical acceptance skills ) and other (DBT skills) Client Response:: Pt responded well to session, open to meeting with therapist. Pt reports feeling angry and I don't like feeling angry. Pt shared this morning she had a stressor with the toilet not working right and pt was trying to fix it, but nothing was working. Pt stated she then lashed out at herself and became very upset which resulted in self-harm by puncturing herself with a fork. Pt receptive to discussion on what led up to self-harm, including on the stressors pt is balancing in her life currently. 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 Pt stated I'm just having a really hard time accepting where I'm at in my life right now. Pt shared she had a vision on how her life would go and where she would be at this stage including a family of her own. Pt reported this leads to more frustration when she compares herself to others her age and then pt is critical of herself. Pt shared this also reinforces her resentment towards her mother and being a caregiver. Pt shared she loves her mom and feels guilt about feeling resentment. Pt receptive to practicing the dialectical self-talk statements discussed last session, that pt can be frustrated with mom and still love her. Pt also receptive to learning about the concept of willingness vs willfulness and how being willful causes more suffering and challenges. Discussed how willingness does not mean pt is happy about her current situation, but it means accepting that it is happening and and having a problem-solving lens while also preventing any unnecessary suffering. Pt shared she really benefitted from learning about necessary and unnecessary suffering and she could identify the ways she is causing herself unnecessary suffering with her current thinking towards this season of life. Pt receptive to working on radical acceptance and self- compassion for homework. Risks/Concerns:: Pt denies any active SI, plan, or intent as of 06/09/24. Pt admits to self-harming this morning using a fork. There are visible, superficial puncture wounds on pt's forearm. The wounds are closed and are not deep. Pt reported this was to cope with anger and not to kill herself. Progress Toward Goals/Plan:: Pt progress is mild as pt continues to report difficulty regulating her emotions, combatting negative thinking, and difficulty accepting my life right now. Pt did make progress during session as she was receptive to radical acceptance and pt shared she plans to utilize this skill. Pt's mood also improved by the end of session. Pt's symptoms continue to impact her daily functioning, relationships, and overall mood. Pt will continue IOP tx to prevent decompensation, gain distress tolerance skills, and improve mood stability. Time Stopped:: 09:45
--- NOTE | 2024-06-09 15:04 | BH.TPR ---
Treatment Plan Review Demographics Date of Admission:: 05/17/24 Date of Treatment Plan Review:: 06/09/24 Admitting Diagnoses:: Major depressive disorder, recurrent, severe without psychosis F 33.2; Generalized anxiety disorder; Panic disorder; Cluster B traits Current Diagnoses:: Major depressive disorder, recurrent, severe without psychosis F 33.2; Generalized anxiety disorder; Panic disorder; Cluster B traits Patient Status Patient's Response to Treatment:: Pt has responded well to session AEB consistently attending IOP and engaging in both individual and group therapy sessions. Pt consistently completes homework provided from individual counseling. Pt contributes at times during group discussions, takes notes, appears to listen to others, and engages in group activities. Pt's overall DSM-5 scores have decreased since admission by 30%. Pt's depression scores have decreased by 25% and her anxiety scores have decreased by 45%. Pt continues to report social anxiety, anger, and urges to self-harm. Status of Current Problems and Symptoms: Pt's biggest stressors/triggers continue to be being the primary caregiver for her mother, worry about work, and lack of social supports. Pt is working on acceptance, but pt shared she still has a hard time accepting where I'm at in my life. Pt's urges to self-harm have recently increased and pt is still struggling with anger and resentment at times. Progress Problem #1: Problem Name:: Depression, SI, negative self-talk. Status of Goals:: Objective 1- complete with ongoing work encouraged. Pt?s scores for depression have decreased by 25% since admission and pt reports benefitting from the routine and support at [facility]. Pt is also reporting consistent use of opposite action. Objective 2- in progress. Pt is working on incorporating more self-compassion and catching negative self-talk. Team Recommendations:: Team recommends continued goals and objectives to reinforce skills and reduce symptoms. Team recommends pt continue working on combating distortions, being more self-compassionate, and acceptance skills. Problem #2: Problem Name:: Anxiety, panic attacks, and ruminations. Status of Goals:: Objective 1- in progress. Pt?s scores for anxiety have decreased by 45% since admission. Pt reports utilizing grounding skills, acceptance, and self-talk to regulate stress and anxiety. Objective 2- in progress. Pt is gaining insight to her typical emotional responses and working on utilizing acceptance, calming skills, and self-talk to improve her emotional regulation and reduce use of unhealthy coping skills. Team Recommendations:: Treatment team encourages pt to continue working on emotional regulation skills and practicing self-care to reduce stress and caregiver fatigue. Pt also encouraged to reach out to her supports more consistently and set realistic expectations for herself at work.
--- NOTE | 2024-06-11 09:05 | BH.SGPN.GN ---
Behaviors/Verbalizations/Mental Status: [] Eye contact is good. Motor activity is appropriate. Appearance is casual. Speech is Appropriate. Mood is depressed/anxious. Affect is congruent. Thoughts are linear and logical. No evidence of psychosis. Reviewed daily check in sheet and pt reports 2/5 for suicidal thoughts and 0/5 for intent. This has been baseline. Symptom tracker also notes improved mood and ability to function. Client Response/Progress/Benefit: [] Pt was an active participant in group discussion. Attentive. Daily symptom tracker notes 3/5 for depression/anxiety and 1/5 for irritability which is significant improved from 06/09/24. Pt states I'm anxious all the time. Every time I leave the house. Admits that she is more comfortable here at [facility]. As she talked she was able to idetnify a couple mental health wins from yesterday which included using calming skills in anxiety-producing situations. She was also more engaged in group discussions and providing feedback to peers. She is pessimistic that she will be able to return to her job for an extended period of time due to her mental health. Limited progress. Benefited from group support, encouragement, and feedback. Will continue in [facility] to maintain safety, prevent decompensation, and improve functioning to return to work. Narrative Note: []
--- NOTE | 2024-06-11 10:15 | BH.SGPN.GN ---
Behaviors/Verbalizations/Mental Status: []Client alert and oriented, casually dressed and groomed. Eye contact good. Motor activity appropriate. Speech within normal limits. Affect congruent, mood content. Thoughts linear, logical, no signs of hallucinations or delusions. Client Response/Progress/Benefit: []Pt engaged in session AEB listening attentively to others and providing input throughout. Pt engaged in activity, able to connect how it can be uncomfortable and difficult to accept when things are out of one?s own control. Pt worked with group to identify what things in life can be hard to accept. Group identified things hard to accept as: change, loss, mental health diagnosis, other?s behaviors, and failure. Pt identified struggling to accept her life has not followed a path she expected and looks different than her family member?s lives. Seemed to benefit from increased awareness of the importance of acceptance. Pt to continue in IOP tx to increase consistent application of healthy coping skills, improve view of self, and prevent decompensation. Narrative Note: []
--- NOTE | 2024-06-11 11:10 | BH.SGPN.GN ---
Behaviors/Verbalizations/Mental Status: []Pt alert and oriented, casually dressed and groomed. Eye contact good. Motor activity appropriate. Speech within normal limits. Affect congruent, mood content. Thoughts linear, logical, no signs of hallucinations or delusions. Client Response/Progress/Benefit: [] Pt responded well to session AEB taking notes and contributing to discussion throughout. Pt engaged as group continued discussion on acceptance and the mental health benefits of practicing acceptance. Pt and peers identified what makes acceptance challenging and pt completed a self-reflection exercise on what is hard to accept in pt's life. Pt identified what is hard to accept in her life and how it makes things harder when pt resists acceptance. Group identified strategies to increase acceptance and pt wants to work on reminding herself to use dialects, such as My life has not followed the path I expected AND I'm okay with the path my life has taken. Pt appeared to benefit from gaining insight and learning strategies to increase acceptance. Pt will continue IOP tx to prevent decompensation, improve daily functioning, and gain self-compassion. Narrative Note: []
--- NOTE | 2024-06-14 09:05 | BH.SGPN.GN ---
Behaviors/Verbalizations/Mental Status: [] Eye contact is good. Motor activity is appropriate. Appearance is casual. Speech is Appropriate. Mood is anxious. Affect is congruent. Thoughts are linear and logical. No evidence of psychosis. Reviewed daily check in sheet and no reports of suicidal ideations or intent. Client Response/Progress/Benefit: [] Pt was an active participant in group discussion. Attentive. Daily symptom tracker notes 3/5 for depression and 2/5 for anxiety/self-harm urges. Able to identify mental health wins and healthy skills. States that her anxiety was less than usual this weekend. She also reports decreased hopelessness stating I was thinking about the future which is a big win. She also got back to my hobbies and practiced mindfulness. She is anxious this AM as she has some stressors upcoming today which includes grocery shopping which she has avoided due to mental health. Group provided feedback and support which was beneficial. Progress noted per pt report. Will continue in IOP to maintain safety, stabilize mood, increase healthy coping, and improve functioning to return to work. Narrative Note: []
--- NOTE | 2024-06-14 10:10 | BH.SGPN.GN ---
Behaviors/Verbalizations/Mental Status: []Pt alert and oriented, casually dressed and groomed. Eye contact fair. Motor activity appropriate. Speech within normal limits. Affect congruent, mood euthymic. Thoughts linear, logical, no signs of hallucinations or delusions. Client Response/Progress/Benefit: [] Pt connected with topic of anxiety and participated throughout, providing input and taking notes. Participated throughout interactive discussion defining anxiety and identifying cognitive and physiological symptoms of anxiety. Group discussed how anxiety can prevent them from trying new things. Pt identified their physical signs of anxiety as: heart palpitations, restless, upset stomach, and skin picking. Pt identified safety behaviors as: isolating, cancel plans, not checking phone/mail, and sleep. Benefited from increased awareness and insight on anxiety and its impact. Pt will continue IOP tx to prevent decompensation, challenge negative thinking, and build confidence.
--- NOTE | 2024-06-14 11:15 | BH.SGPN.GN ---
Behaviors/Verbalizations/Mental Status: []Pt alert and oriented, casually dressed and groomed. Eye contact good. Motor activity appropriate. Speech within normal limits. Affect congruent, mood euthymic. Thoughts linear, logical, no signs of hallucinations or delusions. Client Response/Progress/Benefit: []Pt was an active participant AEB pt providing input and listening attentively to peers. Attentive during psychoeducation on mindfulness coping skills and their impact on reducing anxiety and improving overall mental health wellness. Group was able to identify self-soothing and mind-based coping skills which included: 5-senses, meditation, deep breathing, TIPP, thought challenging, and progressive muscle relaxation. Pt also participated with peers in practicing mindfulness skills in session including deep breathing and PMR. Pt would like to work on using delay, distract, and decide to manage anxiety. Appeared to benefit from increasing repertoire of anxiety reduction skills. Pt will continue in [facility] tx to improve mood stability, increase self-confidence, and improve emotional regulation skills. Narrative Note: []
--- NOTE | 2024-06-16 09:00 | BH.SGPN.GN ---
Behaviors/Verbalizations/Mental Status: [] Pt alert and oriented, neatly dressed and groomed. Eye contact good. Motor activity appropriate. Speech within normal limits. Affect congruent, mood apprehensive.. Thoughts linear, logical, no signs of hallucinations or delusions. Reviewed pt?s symptom tracker, no risk for suicidal ideation, plan, or intent 06/16/24 Client Response/Progress/Benefit: []Pt responded well to session, attentive and engaged. Pt reports feeling apprehensive this morning because pt is doing better in some areas, but pt is having a hard time accepting that things can get better. Pt's mental health wins today include accomplishing one of her small exposure goals and using healthy coping skills to prevent self-harm. Pt also reports not being as negative with herself for having self-harm urges. Pt appeared to benefit from reflecting on progress and connecting with peers. Pt will continue IOP tx to promote mood stability, further improve distress tolerance, and increase self-confidence. Narrative Note: []
--- NOTE | 2024-06-16 11:15 | BH.SGPN.GN ---
Behaviors/Verbalizations/Mental Status: []Pt alert and oriented, casually dressed and groomed. Eye contact good. Motor activity appropriate. Speech within normal limits. Affect congruent, mood content. Thoughts linear, logical, no signs of hallucinations or delusions. Client Response/Progress/Benefit: [] Pt responded well to session, participating in activity and small group discussion. Group reviewed the rest of the defense mechanisms and discussed how these are adaptive, maladaptive, or somewhere in the adorno. Pt participated in the experiential activity which encouraged pts to draw a castle that portrayed their different defense mechanisms. Pt's defense mechanisms included suppression, humor, intellectualization, and anticipation. Pt shared she is working on managing anticipation by trying to utilize grounding skills when she recognizes the urge to preplan something. Pt listened to fittings tightener teach different skills to help pt?s cope with or change their defense mechanisms. Pt appeared to benefit from gaining insight to the different defense mechanisms and learning coping skills. Pt will continue IOP tx to promote mood stability, combat distortions, and prevent decompensation. Narrative Note: [] Narrative Note: []
--- NOTE | 2024-06-16 12:25 | BH.MDN_ITS ---
Multi-Disciplinary Note Note 30-min Individual: Time Started:: 10:40 Date: 06/16/24 Purpose of session/treatment goals addressed:: To review progress and application of skills and to work on goal #2 of pt's tx plan. Eye Contact:: Good Motor Activity:: Appropriate Appearance:: Neat Speech:: Appropriate Mood:: Euthymic and Anxious Affect:: Congruent Thoughts:: Linear, Logical and No evidence of hallucinations/delusions noted Staff Interventions:: thought challenging, CBT techniques, mindfulness skills, strengths perspective, goal setting, taught coping skills and other (created some exposure goals for social anxiety. Reviewed progress with radically accepting stressors and emotions.) Client Response:: Pt responded well to session, open to meeting with therapist. Pt shared she is doing better than she was last week and pt feels her anxiety has decreased and she is feeling much better with radically accepting her feelings and current life situations. Pt shared she was able to enjoy the weekend, she even engaged in some old craft hobbies which pt enjoyed. Pt has also been working on using self-talk such as it's okay to feel anger I can get through this. Pt shared she is feeling less judgmental about her current life situation and pt feels she is being more mindful with her emotions as well. Pt stated she had an urge to self-harm recently, but she was able to utilize calming skills and distress tolerance to prevent self-harm. Pt shared she feels ready to work on some exposure goals to reduce anxiety and increase self- confidence. Pt stated she wants to be able to build bigger social network because pt feels she is only close with her mom and dad. Pt stated this terrifies me because what will I do when they ? Discussed barriers to building support systems which pt identified as fear of judgment, perfectionism, social anxiety, and fear of being vulnerable. Pt has been working on being vulnerable and has received positive feedback, so pt is willing to continue doing this. Pt identified trying to be more vulnerable and hang out more with her stepmother and stepsisters. Pt also wants to work on engaging in more conversations in IOP and inserting herself in conversations which is something she has been avoiding. Risks/Concerns:: Pt denies any suicidal ideations and no self-harm since last session. Progress Toward Goals/Plan:: Pt reports improved mood this week and progress in radically accepting her emotions. Pt also reports less anxiety this week, increased motivation, and ability to combat the urge to self-harm. Pt is a nxious about returning to work, but she is willing to work more on anxiety and exposure in the next coming weeks. Pt wants to work on increasing her confidence in interacting with peers as this will help pt when she returns to work. Pt also wants to work on connecting with family and being more assertive. Pt will continue IOP tx to promote mood stability, reduce negative thinking patterns, and improve work-related functioning. Time Stopped:: 11:15
--- NOTE | 2024-06-18 09:05 | BH.SGPN.GN ---
Behaviors/Verbalizations/Mental Status: [] Eye contact is good. Motor activity is appropriate. Appearance is casual. Speech is Appropriate. Mood is depressed/irritable. Affect is congruent. Thoughts are linear and logical. No evidence of psychosis. Reviewed daily check in sheet and she reports 1/5 for suicidal ideations and 0/5 for intent. Client Response/Progress/Benefit: [] Pt participated when prompted. Attentive. Daily symptom tracker notes 4/5 for depressed mood. According to pt she is having trouble feeling happy about things. States my mood is down for the past couple days. No specific trigger. Ruminating on chronic mental health struggles Am I always going to be like this? Despite mood she continues to opposite action and behavioral activation. She went to a social event yesterday and continues to complete tasks she doesn't want to do however understands will benefit her mental health. Emotion for today is irritable. Benefited from group support, encouragement, and feedback. Will continue in IOP to maintain safety, prevent decompensation, and improve functioig to return to work. Narrative Note: []
--- NOTE | 2024-06-18 10:15 | BH.SGPN.GN ---
Behaviors/Verbalizations/Mental Status: []Pt alert and oriented, neatly dressed and groomed. Eye contact good. Motor activity appropriate. Speech within normal limits. Affect congruent, mood depressed. Thoughts linear, logical, no signs of hallucinations or delusions. Client Response/Progress/Benefit: [] Pt responded well to session AEB sharing and listening attentively to others. Group identified types of social support (family, pets, professionals, spiritual, etc) and provided examples of benefits of having social support, including: decreased stress, increased self-esteem, encouragement, distraction, etc. Pt also participated in group discussion regarding the barriers to accessing support which pt stated she tends to not engage with support due to fear of judgment. ?Pt participated in experiential activity illustrating the impact communication, boundaries, and patience play in creating healthy support systems. Pt appeared to benefit from increased knowledge of the benefits of social support and greater self-awareness. Will continue IOP to promote mood stability, combat distortions, and increase self-confidence. Narrative Note: []
--- NOTE | 2024-06-18 11:15 | BH.SGPN.GN ---
Behaviors/Verbalizations/Mental Status: []Pt alert and oriented, neatly dressed and groomed. Eye contact good. Motor activity appropriate. Speech within normal limits. Affect congruent, mood irritable. Thoughts linear, logical, no signs of hallucinations or delusions. Client Response/Progress/Benefit: [] Pt was an active participant throughout AEB contributing to discussion, providing personal examples, and taking notes. Pt processed emotions felt in the activity and how they coped in the moment. Pt provided input during discussion on the types of support our supports can provide. Pt able to identify current support system and barriers that get in the way of using supports by drawing out their own support net. Pt reported after identifying what type of supports they receive; they gained awareness that they could benefit from getting more emotional support. Pt plans to do this by ?being vulnerable and talking about myself openly.? ?Pt seemed to benefit from identifying the type of support Pt needs to work on improving. Pt recommended to continue IOP tx to reduce negative thinking patterns, improve daily functioning, and promote mood stability. ?? Narrative Note: []
--- NOTE | 2024-06-21 09:05 | BH.SGPN.GN ---
Behaviors/Verbalizations/Mental Status: [] Eye contact is good. Motor activity is appropriate. Appearance is casual. Speech is Appropriate. Mood is depressed and anxious. Affect is congruent. Thoughts are linear and logical. No evidence of psychosis. Reviewed daily check in sheet and no reports of suicidal ideations or intent. Client Response/Progress/Benefit: [] Pt participated when prompted. Attentive. Daily symptom tracker notes /5 for depression and 3/5 for anxiety. Able to identify mental health wins over the weekend. Utilized skills. Met with support and allowed herself to be vulnerable and communicate assertively. She also reports I slept a full six hours and feels rested. She has struggles to get consistent sleep. Unable to identify any changes to her day or sleep routine which could have improved her sleep. She continues to report depression, anxiety, and ruminations. She is mainly anxious about returning to work and her ability to maintain her current position. She has been off work for 12 weeks. Last time I was struggling like this I was off for 12 months. I still have a lot of work to do. Progress noted. Benefited from group support, encouragement, and feedback. Will continue in IOP to maintain safety, prevent decompensation, increase healthy coping, and improve functioning to return to work. Narrative Note: []
--- NOTE | 2024-06-21 10:15 | BH.SGPN.GN ---
Behaviors/Verbalizations/Mental Status: []Pt alert and oriented, neatly dressed and groomed. Eye contact good. Motor activity appropriate. Speech within normal limits. Affect congruent, mood agitated. Thoughts linear, logical, no signs of hallucinations or delusions. Client Response/Progress/Benefit: [] Pt was attentive during psychoeducation and participated in group activity. Group discussed what contributes to a person?s perspective and how perspective can positively or negatively impact mental health treatment. Pt reflected on their perspective today and how it is impacting them. Pt shared their perspective today is ?more negative and doubtful.? Pt shared she has less energy today and she feels ?not as willing and vulnerable today.? Pt recognizes this impacted her participation in group today. Pt appeared to benefit from increasing awareness of different perspectives and how they can affect mental health. Pt will continue IOP tx to promote use of healthy coping skills, improve mood stability, and reduce negative thinking patterns. ? Narrative Note: []
--- NOTE | 2024-06-21 11:15 | BH.SGPN.GN ---
Behaviors/Verbalizations/Mental Status: []Pt alert and oriented, casually dressed and groomed. Eye contact fair to good. Motor activity appropriate. Speech within normal limits. Affect congruent, mood content. Thoughts linear, logical, no signs of hallucinations or delusions. Client Response/Progress/Benefit: []Pt was attentive and contributed to group discussion. Pt worked with group to identify strategies that can help with challenging negative perspective. Pt completed strengths exploration worksheet, identifying love of learning, kindness, and creativity as personal strengths. Pt able to acknowledge how these strengths are helping pt and can continue to help pt in mental health journey. Pt identified wanting to work on leaning on strength of kindness to begin practicing treating herself?with kindness and working to improve use of dialectical thinking. Benefited from identifying personal strengths and strategies for enhancing use of identified strengths. Pt will continue IOP tx to increase coping skill repertoire, improve mood stability, and prevent decompensation. Narrative Note: []
--- NOTE | 2024-06-23 09:05 | BH.SGPN.GN ---
Behaviors/Verbalizations/Mental Status: [] Eye contact is good. Motor activity is appropriate. Appearance is casual. Speech is Appropriate. Mood is depressed. Affect is congruent. Thoughts are linear and logical. No evidence of psychosis. Reviewed daily check in sheet and no reports of suicidal ideations or intent. Client Response/Progress/Benefit: [] Pt participated at times during group discussion. Attentive. She continues to struggle with negative automatic thoughts specifically related to her fear of being unable to function at her job. She attempting to reframe and challenge thoughts however feels only able to find evidence that she will fail. Attempting affirmative statements about herself with limited benefit. Limited progress noted. Benefited from group support, encouragement, and feedback. Will continue in IOP to maintain safety, increase healthy coping, and improve functioning to return to work. Narrative Note: []
--- NOTE | 2024-06-23 10:10 | BH.SGPN.GN ---
Behaviors/Verbalizations/Mental Status: [] Eye contact is fair. Motor activity is appropriate. Appearance is casual. Speech is Appropriate. Mood is anxious. Affect is constricted. Thoughts are linear and logical. No evidence of psychosis. Client Response/Progress/Benefit: [] Pt responded well to session AEB contributing to small group discussion, taking notes, and listening attentively to others. Group defined anger and discussed the benefits of managed anger and anger as a secondary emotion. Pt shared perspective on personal benefits of anger as advocating for self. Pt completed worksheet on anger triggers and personal warning signs of anger. Pt identified a common trigger for her is when her mom says something hurtful. Pt able to create her personal anger cycle, starting to connect how her response to triggers can make things better or worse. Appeared to benefit from increased knowledge of the anger cycle as well as personal triggers. Will continue IOP to improve emotion regulation, challenge distorted/negative thoughts, and prevent decompensation.
--- NOTE | 2024-06-23 11:15 | BH.SGPN.GN ---
Behaviors/Verbalizations/Mental Status: []Client alert and oriented, casually dressed and groomed. Eye contact fair to good. Motor activity appropriate. Speech within normal limits. Affect congruent, mood anxious and content. Thoughts linear, logical, no signs of hallucinations or delusions. Client Response/Progress/Benefit: []Pt was engaged throughout AEB contributing to group discussion and activity. Group processed how they each responded to the intentionally difficult task they were asked to completed and described the physical and emotional anger cues experienced throughout, as well as strategies used for managing these frustrations. Pt contributed as group brainstormed healthy coping skills for better managing anger which included: music, walking/exercise, taking a break, healthy venting, avoiding unnecessary stressors, reflection, and journaling. Pt identified plans to work on better identifying her anger triggers and applying skills in the moment. Pt appeared to benefit from identifying different techniques to manage anger as well as gaining awareness of potential consequences of unmanaged anger. Pt to continue IOP to promote use of healthy coping skills, challenge distortions, and prevent decompensation. Narrative Note: []
--- NOTE | 2024-06-23 12:04 | PCM.BH.PN_ITS ---
Progress Note Progress Note: History of Present Illness/Interim History: The patient is a 44-year-old single, female with a history of depression, anxiety and PTSD who is seen in follow-up at the [facility] behavioral health IOP. I last saw the patient 2 weeks ago and at that time trazodone was added to help with sleep. The patient is enjoying the program and feels she is learning valuable skills to help deal with her mental health issues. She remains on FMLA till July 17, 2024. She is still struggling somewhat with anxiety over working but is able to function better now at home. She denies any self-harm since last visit but she has had some thoughts of self-harm. She denies any panic attacks since last visit. Sleep has improved and is about 9 hours a night now. Patient is still working on her negative self talk and rumination. She denies passive thoughts of , suicidal ideation, homicidal ideation, plan for suicide, hallucinations or delusions. She has a history of chronic thoughts of self-harm and chronic passive suicidal ideation. Current Psychiatric Medications: [] Pristiq 100 mg p.o. daily (dose increased 6 weeks ago); Lamictal 50 mg twice daily; clonidine 0.2 mg twice daily; Klonopin 0.5 mg which she takes either once or twice or 0 times a day. Trazodone 50 mg p.o. nightly (x 2 weeks) Mental Status Examination: [] The patient is an obese female who appears normal for stated age and is casually dressed and groomed with good hygiene. She is ambulatory with a normal gait and has no psychomotor agitation or retardation. Speech is normal rate and rhythm and fluent with no pressure and eye contact is good. Mood is depressed and anxious. Affect is constricted. Thought process is goal-directed and organized. Thought content: There is evidence of thoughts of self-harm. There is no evidence of actions of self- harm. There is no evidence of passive thoughts of , active suicidal ideation, hallucinations or delusions. Reality testing is intact. Judgment is intact. Insight Limited but some present. Impulsivity is high. Diagnoses: [] 1. Major depressive disorder, recurrent, moderate 2. Generalized anxiety disorder 3. Panic disorder 4. Strong cluster B traits 5. Primary support and work issues Plan: [] The patient will continue the IOP in behavioral health at [facility] as the structure, support, education and group therapy will hopefully prevent worsening of the patient's symptoms which could require hosp italization. She felt safe during the interview and if it anytime she does not feel safe she agrees to let us know or go to the emergency room. No medication changes were made today. The patient agrees to follow-up with her outpatient providers and I will see the patient in follow-up while she is in the IOP.
--- NOTE | 2024-06-25 09:00 | BH.SGPN.GN ---
Behaviors/Verbalizations/Mental Status: [] Pt alert and oriented, neatly dressed and groomed. Eye contact good. Motor activity appropriate. Speech within normal limits. Affect constricted. mood irritable. Thoughts linear, logical, no signs of hallucinations or delusions. Reviewed pt?s symptom tracker, no risk for suicidal ideation, plan, or intent 06/25/24. Pt's report for SI on the daily symptom tracker is within her baseline. Client Response/Progress/Benefit: []Pt responded well to session, attentive and engaged. Pt reports feeling irritable this morning as pt feels frustrated about a recent interaction with her boss and she feels anxious about returning to work. Pt stated despite feeling irritable, pt has been using thought challenging and opposite action which has helped pt not decompensate. Pt was able to go to lunch with her father which she enjoyed. Pt appeared to benefit from reflecting on progress and connecting with peers. Pt will continue IOP tx to increase emotional regulation skills, reduce negative self-talk, and increase self-care practices to improve mood. Narrative Note: []
--- NOTE | 2024-06-25 10:15 | BH.SGPN.GN ---
Behaviors/Verbalizations/Mental Status: []Patient was alert and oriented, casually dressed and groomed. Eye contact was good, motor activity normal, speech within normal limits. Affect congruent, mood calm. Thoughts linear, logical, no signs of hallucinations or delusion Client Response/Progress/Benefit: []Pt participated in the group discussions AEB providing input and taking notes. Attentive during psychoeducation Goal Setting. Participated during the discussion on common barriers and pt identified some personal barriers as negative self-talk and prioritizing other's needs before her own. Group also identified benefits of goals as sense of purpose, improved self-confidence, more motivation for other goals, and improved mental health. Benefited from increased awareness of mental health benefits of goals as well as psychoeducation on SMART goal criteria. Will continue in IOP to improve mood stability, reduce negative thinking patterns, and prevent decompensation. ? Narrative Note: []
--- NOTE | 2024-06-25 14:01 | BH.MDN_ITS ---
Multi-Disciplinary Note Note 45-min Individual: Time Started:: 11:20 Date: 06/25/24 Purpose of session/treatment goals addressed:: To work on return to work plan and reflect on progress. Eye Contact:: Good Motor Activity:: Appropriate Appearance:: Neat Speech:: Appropriate Mood:: Euthymic and Anxious Affect:: Congruent Thoughts:: Linear, Logical and No evidence of hallucinations/delusions noted Staff Interventions:: thought challenging, CBT techniques, mindfulness skills, discharge planning, strengths perspective and other (Completed a return to work coping plan.) Client Response:: Pt responded well to session, open to meeting with michael noe. Pt reports she has been doing well and utilizing her coping skills. Pt shared she still experiences anxiety, anger, and depression, but pt feels she is able to manage these much better. 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 Pt also has been getting out of the house more even though it makes her anxious. Pt shared she was anxious yesterday and almost canceled on pt's father, but she did not and had a good time. Pt is anxious about returning to work and was willing to work on a return to work plan. Pt's plan included triggers, warning signs, supports, coping skills, and self-care. Pt's triggers included: getting too hot, being too hungry, co-workers sitting when pt is busy, and being busy at work. Pt's warning signs included increased heart rate, urges to avoid, sense of dread, and dwelling after work. Pt identified coping skills to manage irritation and anxiety such as reframing thoughts, deep breathing, guided imagery, asking for help, acceptance, and opposite action. Pt shared she can also work on getting to work a little early to have time to practice calming skills before her shift. Pt also plans to practice driving to work to reduce anxiety. Pt will be talking with her boss about potentially returning to work part-time at first as well to help pt more successfully transition back to work. Risks/Concerns:: Pt denies any SI, plan, or intent. Progress Toward Goals/Plan:: Pt continues to make progress towards her tx goals AEB pt's self-report of utilizing healthy coping skills consistently and her self-report of improving functioning. Pt reports anxiety about returning to work, but pt also is willing to create a plan to help pt transition back to work. Pt will continue to work on using opposite action to increase social support and reduce avoidance. Pt will continue IOP tx for two more weeks to promote gains, improve work-related functioning, and reduce anxiety. Time Stopped:: 12:00
--- NOTE | 2024-06-28 09:05 | BH.SGPN.GN ---
Behaviors/Verbalizations/Mental Status: [] Eye contact is good. Motor activity is appropriate. Appearance is casual. Speech is Appropriate. Mood is depressed. Affect is congruent. Thoughts are linear and logical. No evidence of psychosis. Reviewed daily check in sheet and pt reports 1/5 for suicidal ideations and 0/5 for intent. Baseline. Client Response/Progress/Benefit: [] Pt participated at times during group discussions. Attentive. Daily symptom tracker notes 35 for depression and anxiety. Pt reports setback this stating that she was isolating, feeling down, and felt she didn't have anything to look forward too. She was not able to complete her exposure goal either and felt like a failure. States that she was able to pull herself out of negative cycle on Friday by utilizing behavior activation. She was also able to identify mental health wins this AM in which she was able to utilizing coping and calming skills to prevent escalation. According to pt her in the moment emotion regulation is improving however her hopelessness remains about her future. Beneifted from group support, encouragement, and feedback. Will continue in IOP to maintain safety, increase healthy coping, and improve functioning to return to work. Narrative Note: []
--- NOTE | 2024-06-28 10:15 | BH.SGPN.GN ---
Behaviors/Verbalizations/Mental Status: []Client alert and oriented, casually dressed and groomed. Eye contact good. Motor activity appropriate. Speech within normal limits. Affect congruent, mood depressed and anxious. Thoughts linear, logical, no signs of hallucinations or delusions. Client Response/Progress/Benefit: []Pt was an active participant, AEB taking notes and providing input in group discussions and activities. Attentive during psychoeducation. Pt engaged during interactive discussion in which the group defined self-care and discussed its benefits. Group discussed barriers to engaging in self-care. Group members together came up with guilt, time, urge to put others first, not knowing what to do for self-care, and perception that its unproductive as barriers to engage in self care. Pt stated their personal barrier is not having motivation or the believe that it can help. Pt participated in small groups where they worked to identified and challenged common self-care ?myths?. Benefited from increased awareness of self-care, its benefits, and the consequences of not utilizing self-care strategies. Will continue IOP tx to promote work-related functioning, increase distress tolerance skills, and combat distortions. Narrative Note: []
--- NOTE | 2024-06-28 11:15 | BH.SGPN.GN ---
Behaviors/Verbalizations/Mental Status: [] Client alert and oriented, casually dressed and groomed. Eye contact good. Motor activity appropriate. Speech within normal limits. Affect congruent, mood content. Thoughts linear, logical, no signs of hallucinations or delusions. Client Response/Progress/Benefit: []Client engaged in discussion reviewing different areas of self-care and completing self-assessment of current self care, as well as providing input throughout discussion. Client completed worksheet identifying current self-care practices and what self-care activities client wants to start using. Client selected physical self-care to begin practicing more consistently. Client plans to do this by starting to more consistently male and keep her preventative healthcare appointments. Appeared to benefit from completing the self-care evaluation and gaining insights into current self-care practices, as well as identifying areas in which client would like to improve upon. Client will continue IOP tx to prevent decompensation and promote mood stability. Narrative Note: []
--- NOTE | 2024-06-30 09:00 | BH.SGPN.GN ---
Behaviors/Verbalizations/Mental Status: [] Eye contact good. Motor activity appropriate. Speech within normal limits. Affect congruent, mood content. Thoughts linear, logical, no signs of hallucinations or delusions. Reviewed client?s symptom tracker, denies SI, plan, or intent as of 06/30/2024. Client Response/Progress/Benefit: [] Client receptive of session, attentive and willing to process with group. Reports feeling calm today. ?Identified mental health ?win as successfully managing her anxiety throughout the day on Friday and despite an eventual panic attack that evening, she did well to reduce the severity and duration of the attack. Described deep breathing and grounding skills as helpful in doing so. Shared that an additional win is her overall improved mood and ability to manage her emotions. CUrrent stressor noted as continuing to work on accepting that her mental health will be a lifelong journey to manage. Benefitted from encouragement and support of the group. Recommended continued IOP tx to maintain mood stability, promote consistent skill application to continue to improve functioning, well as prevent decompensation. Narrative Note: []
--- NOTE | 2024-06-30 10:10 | BH.SGPN.GN ---
Behaviors/Verbalizations/Mental Status: []Eye contact is fair. Motor activity is appropriate. Appearance is causal. Speech is Appropriate. Mood is dysthymic. Affect is constricted. Thoughts are linear and logical. No evidence of psychosis Client Response/Progress/Benefit: [] Pt was an active participant in group discussion and experiential activity. Attentive during psychoeducation on resilience. Participated during interactive discussion with peers on the definition of resilience. Able to relate experiential activity of group juggle to topics of resilience. Group worked together to identify what can impact one's ability to be resilient which included past experiences, trauma, toxic support system, lack of resources, and current mental/physical health state. Worked well with peers in small group in which they identified factors that contribute to building resilience. Pt?s group worked on the importance of keeping things in perspective. Benefited from increased awareness of resilience and the factors that contribute to building resilience. Will continue in IOP to improve distress tolerance, challenge distortions, adnp revent decompensation.
--- NOTE | 2024-06-30 11:10 | BH.SGPN.GN ---
Behaviors/Verbalizations/Mental Status: []Pt alert and oriented, casually dressed and groomed. Eye contact good. Motor activity appropriate. Speech within normal limits. Affect flat, mood anxious. Thoughts linear, logical, no signs of hallucinations or delusions. Client Response/Progress/Benefit: []Pt responded well to session AEB completing the resilience worksheet provided. Pt participated in the discussion and worked cooperatively with group to identify strategies to enhance each of the components discussed. Pt reports belief they already use resilience traits of??making connections and self-awareness.? Pt stated they would like to continue to develop resilience trait of ?avoiding seeing crises as insurmountable? as pt feels pt would benefit from using her shepard mind and managing her anxiety. Pt seemed to benefit from discussing strategies for improving personal resilience and identifying resilience traits pt already possesses. Will continue IOP tx to promote mood stability, reduce negative thinking, and increase self-confidence. Narrative Note: []
== END 2024-06-30 23:59 ==
LOC: BHIOP 07:15
PROVIDERS: Visit Provider Psychiatry & Neurology Psychiatry
DX: F33.1 Major depressive disorder, recurrent, moderate (principal); F41.1 Generalized anxiety disorder; F41.0 Panic disorder [episodic paroxysmal anxiety]; Z79.899 Other long term (current) drug therapy
CPT/HCPCS: S9480; 90832; 90834; 90853

== ENCOUNTER 2024-07-01 07:14 | Outpatient (RCR) | payer BC, SELFPAY ==
[2024-07-01 00:40] VITALS: BP 136/88; PULSE 72
--- NOTE | 2024-07-02 09:05 | BH.SGPN.GN ---
Behaviors/Verbalizations/Mental Status: [] Pt alert and oriented, neatly dressed and groomed. Eye contact good. Motor activity appropriate. Speech within normal limits. Affect congruent, mood mildly optimistic and anxious. Thoughts linear, logical, no signs of hallucinations or delusions. Reviewed pt?s symptom tracker, no risk for suicidal ideation, plan, or intent 07/02/24 Client Response/Progress/Benefit: []Pt responded well to session, attentive and engaged. Pt reports feeling anxious but hopeful this morning. Pt shared she had been struggling to accept some things recently, but she had a good session with my therapist yesterday so pt is feeling better today. Pt shared other wins today are taking decisive action yesterday and handling stress well per her report. Pt's stressor today is returning to work. Pt appeared to benefit from reflecting on progress and connecting with peers. Pt will continue IOP tx to promote mood stability, reduce negative thinking patterns, and reinforce the use of healthy coping skills. Narrative Note: []
--- NOTE | 2024-07-02 10:25 | BH.SGPN.GN ---
Behaviors/Verbalizations/Mental Status: []Pt alert and oriented, casually dressed and groomed. Eye contact good. Motor activity appropriate. Speech within normal limits. Affect congruent, mood content, anxious. Thoughts linear, logical, no signs of hallucinations or delusions. Client Response/Progress/Benefit: [] Pt took notes and contributed some throughout group discussion and interactive activity. Attentive during psychoeducation on fixed mindset and how a fixed mindset can impact mental health, resilience, and relationships. Participated during the interactive group discussion on fixed mindset in which group verbalized their current fixed mindsets and how they affect their mental health. Pt shared common fixed mindset thoughts they have which included I?ll never get better?, ?I'm stuck in this situation?, and ?I screw things up?. These thoughts lead to giving up or not trying, low self-esteem, and remaining stuck. Pt benefited from increased awareness of growth mindset and fixed thoughts and how fixed thoughts impact their mental health. Will continue IOP tx to prevent decompensation, maintain mood stability, and improve self-confidence. Narrative Note: []
--- NOTE | 2024-07-02 13:28 | BH.MDN ---
Multi-Disciplinary Note Note 30-min Individual: Time Started:: 11:20 Date: 07/02/24 Purpose of session/treatment goals addressed:: To work on goal #1 of pt's tx plan. Another goal was to discuss self-care. Eye Contact:: Fair Motor Activity:: Appropriate Appearance:: Casual Speech:: Appropriate Mood:: Depressed Affect:: Flat Thoughts:: Linear, Logical and No evidence of hallucinations/delusions noted Staff Interventions:: thought challenging, motivational interviewing, CBT techniques, discharge planning, strengths perspective and other (self-care strategies and burnout prevention.) Client Response:: Pt responded well to session, open to meeting with therapist. Pt shared she is feeling low energy today and after further processing, pt recognized she feels apathetic. Pt stated she had an individual session yesterday and she gained awareness that she is burnout on life. However, pt does not know how to fix this. 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 Pt stated she used to enjoy writing, learning new skills for work, crafts, and animals. Discussed behavioral activation and how one cannot wait to feel motivated to engage in hobbies and pt was receptive to this. Pt explored what would be realistic for her to get back into and pt shared painting or animals. Pt has a zoo membership and she has been wanting to go to an art class. Pt stated she is more likely to follow through with self-care if she does it outside her house, away from her caregiving role. Pt also shared she wants to get a dog as in the past having a dog helped pt practice more self-care. Pt also receptive to scheduling self-care/hobbies more consistently with the mindset that adding this to her plate may actually subtract other stressors from her plate. Pt plans to research painting classes for homework. Risks/Concerns:: Pt denies any suicidal ideation, plan, or intent as of 07/02/24. Progress Toward Goals/Plan:: Pt continues to make progress towards her tx goals AEB her report of improved functioning and use of coping skills. However, pt reports her mood and energy levels are low today which pt believes is due to being burn out on life. Pt stated she has not been engaging in much self-care and recognizes this is contributing to her burn out. Pt receptive to goal setting today and she still plans to discharge from IOP next week. Pt can benefit from another week in IOP tx to promote mood stability and reinforce healthy coping skills. Time Stopped:: 11:54
--- NOTE | 2024-07-05 09:00 | BH.SGPN.GN ---
Behaviors/Verbalizations/Mental Status: [] Pt alert and oriented, neatly dressed and groomed. Eye contact good. Motor activity appropriate. Speech within normal limits. Affect flat, mood apathetic. Thoughts linear, logical, no signs of hallucinations or delusions. Reviewed pt?s symptom tracker, no risk for suicidal ideation, plan, or intent 07/05/24 Client Response/Progress/Benefit: []Pt responded well to session, attentive and engaged. Pt reports feeling apathetic this morning as pt was a little down on herself for not accomplishing a goal she had for the weekend. Pt was trying to be compassionate with herself, though, as pt pulled a muscle in her back so she used this weekend to rest. Pt was also put on a steroid and pt shared steroids typically impact her mood. Pt did give herself credit for using healthy coping skills and for completing paperwork needed for her return to work. Pt's stressor today is returning to work in a few weeks. Pt appeared to benefit from peer support and feedback. Pt will continue IOP tx through this week to reinforce healthy coping skills and improve self-compassion. Narrative Note: []
--- NOTE | 2024-07-05 10:10 | BH.SGPN.GN ---
Behaviors/Verbalizations/Mental Status: []Pt alert and oriented, causally dressed and groomed. Eye contact fair. Motor activity appropriate. Speech within normal limits. Affect constricted, mood dysthymic. Thoughts linear, logical, no signs of hallucinations or delusions. Client Response/Progress/Benefit: [] Pt was actively engaged, providing input, and taking notes throughout session. Connected with the topic of pitfalls and listened to group discussion on internal and external barriers that prevent from choosing a healthier path to mental wellness. Group worked together to identify examples of personal internal pitfalls. Engaged in activity and worked cooperatively with peers. Shared personal pitfalls to include distorted thoughts, lack of consistency with skills, and poor boundaries. Pt engaged in learning about the difference between external triggers and self-sabotaging behaviors. Seemed to benefit from increased awareness of personal pitfalls. Pt will continue IOP tx to promote consistent use of healthy coping skills, challenge distorted/negative thoughts, and prevent decompensation.
--- NOTE | 2024-07-05 11:15 | BH.SGPN.GN ---
Behaviors/Verbalizations/Mental Status: []Pt alert and oriented, casually dressed and groomed. Eye contact good. Motor activity appropriate. Speech within normal limits. Affect congruent, mood agitated during activity, content otherwise. Thoughts linear, logical, no signs of hallucinations or delusions. Client Response/Progress/Benefit: [] Pt receptive of session, engaged throughout AEB actively contributing and listening to discussion, as well as taking notes. Pt participated in the experiential activity and processed with group how their emotions, perspective, and reactions positively and negatively impacted the outcome. Pt identified pitfalls they struggle with and shared wanting to work on pitfall of isolation by challenging herself to more consistently reach out and honestly communicate with supports. Benefited from identifying personal pitfalls and strategies to overcome these pitfalls. Will continue IOP tx to prevent decompensation, continue to improve daily functioning, and promote mood stability. Narrative Note: []
--- NOTE | 2024-07-07 09:02 | BH.SGPN.GN ---
Behaviors/Verbalizations/Mental Status: [] Client alert and oriented, casual appearance. Eye contact fair. Motor activity appropriate. Speech within normal limits. Affect constricted, mood dysthymic. Thoughts linear, logical, no signs of hallucinations or delusions. Reviewed client's symptom tracker, no risk for suicidal ideation, plan, or intent. Client Response/Progress/Benefit: [] Client responded well to session AEB listening to others and sharing thoughts/feelings. Client reported mental health positive as going to therapy yesterday even though she wanted to cancel. Client reported she is glad she went to therapy because she always feels better after going. Client reported additional positive as using opposite action to come to IOP today. Client stated additional positive as consistently attending IOP. 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 Appeared to benefit from support from peers. Will continue IOP tx to increase consistent use of healthy coping skills, challenge negative thoughts, and prevent decompensation.
--- NOTE | 2024-07-07 10:10 | BH.SGPN.GN ---
Behaviors/Verbalizations/Mental Status: [] Eye contact is good. Motor activity is appropriate. Appearance is casual. Speech is Appropriate. Mood is dysthymic. Affect is congruent. Thoughts are linear and logical. No evidence of psychosis. Client Response/Progress/Benefit: [] Pt was an active participant during group discussions and group activities. This portion of group was very psychoeducation heavy and pt was attentive during psychoeducation. Engaged during activity in which they identified which type of foods (i.e. carbs, sugar, salt, fast food, caffeine, etc) they seek out when sad, tired, angry, stressed, anxious, etc. Pt was able to identify the impact that certain foods have on their mental health through group example which was beneficial. Reported connecting with the impacts fast or fried foods can have on depression and energy levels. Benefited from increased awareness of the connection between nutrition and mental health. Will continue in IOP to prevent decompensation, maintain mood stability, and promote continued use of healthy coping skills. Narrative Note: []
--- NOTE | 2024-07-07 11:10 | BH.SGPN.GN ---
Behaviors/Verbalizations/Mental Status: []Pt alert and oriented, casually dressed and groomed. Eye contact good. Motor activity appropriate. Speech within normal limits. Affect congruent, mood content, dysthymic. Thoughts linear, logical, no signs of hallucinations or delusions. Client Response/Progress/Benefit: []Pt was an active participant throughout AEB contributing to group discussion and taking notes. Pt provided input during small group discussion on strategies to combat each factor maintaining adverse nutritional cycles. Worked with group to identify ways to foster more mindful nutritional choices. Each group participant identified one small step they could take today to begin establishing mental wellness promoting nutritional choices. Pt shared plans to?get back into cooking extra portions so pt has lunch for the next day. Appeared to benefit from gaining insight into mental wellness centered nutrition and identifying personal steps pt can take to support own nutritional psychology. Recommended continued IOP tx to promote use of healthy coping skills and further combat distortions. ??? Narrative Note: []
--- NOTE | 2024-07-09 08:34 | BH.AFTERPLAN ---
Aftercare Plan Demographics Treatment End Date:: 07/09/24 Psychiatrist:: Patti Alvarez Psychiatrist Office #:: [phone] [facility]/IOP Therapist:: Padmini Matias Therapist Phone #:: [phone] Medications Home Medications cetirizine 10 mg tablet (24Hour Allergy) 10 mg PO DAILY 05/17/24 clonazepam 0.5 mg tablet (Klonopin) 0.5 mg PO BID PRN anxiety 05/17/24 clonidine HCl 0.2 mg tablet 0.2 mg PO BID 05/17/24 desvenlafaxine succinate 100 mg tablet,extended release 24 hr (Pristiq) 100 mg PO DAILY 05/17/24 lamotrigine 25 mg tablet (Lamictal) 50 mg PO BID 05/17/24 omeprazole 20 mg capsule,delayed release 20 mg PO DAILY 05/17/24 trazodone 50 mg tablet 50 mg PO QHS 30 days #30 tabs 06/09/24 Plan Details Progress/Aftercare Plan Details:: Lissette has responded well to treatment as evidenced by Lissette consistently attending IOP sessions and her reduction of DSM-5 scores since admission. Lissette was always attentive and receptive to learning during group and individual sessions. Lissette actively applied coping skills outside of IOP and reports overall her mood is improved and she is functioning better than she was several months ago. Lisestte?s overall symptom reduction is 34% since admission with anger decreasing by 67%, depression decreasing by 38%, and anxiety decreasing by 36%. Lissette has increased self-compassion and faced many hard things. Most importantly, Lissette has become more vulnerable, flexible, and confident in her abilities. Strategies for Success:: 1. Opposite action! Continue to break that cycle of anxiety, guilt, and depression by not letting emotions be the only drivers of your bus. 2. Remember that thoughts are thoughts NOT facts! You have power in if you give thoughts the time of day or not. 3. self-care! You deserve to take time for you and you also deserve to face the not so fun self-care like not looking at certain media 4. Self-compassion! You are human and you will make a mistake?BUT that doesn?t mean you are a failure or not good enough. Remember there are no bad parts! 5. Continue to practice acceptance and remember acceptance means loving this version of you 6. Practice positive self-talk and keep track of your wins. 7. Remember progress isn?t linear! You may have a setback or bump in the road, but that doesn?t mean you?ve lost all progress. 8. self-reflection and self-awareness. 9. Be understanding with yourself and try to see the whole picture, not just the snapshot. 10. Live in the dhaliwal!! Appointments Appointments/Referrals to Other Services:: 1. [facility] for [facility]. Most recent appointment 07/08/24. 2. [facility] for individual counseling. Next appointment is 07/13/24.
--- NOTE | 2024-07-09 09:33 | BH.MDN ---
Multi-Disciplinary Note Note 30-min Individual: Time Started:: 09:12 Date: 07/09/24 Purpose of session/treatment goals addressed:: To address current stressors and discuss strategies to help cope with these stressors. Another goal was to discuss discharge and aftercare. Eye Contact:: Good Motor Activity:: Appropriate Appearance:: Neat Speech:: Appropriate Mood:: Euthymic and Anxious Affect:: Full Thoughts:: Linear, Logical and No evidence of hallucinations/delusions noted Staff Interventions:: CBT techniques, discharge planning, strengths perspective and reviewed DSM-5 Client Response:: Pt responded well to session, open to meeting with therapist. Pt stated she knows she is ready to discharge from IOP today, but she is struggling with some negative thoughts. Pt stated she is telling herself I'm not where I thought I'd be on my last day. Pt receptive to thought challenging and pt used her reduction in DSM-5 scores to see that she has made progress, especially in reducing anger and increasing acceptance. Pt also recognized that she can be both better than she was and have more work to do. Pt reports her biggest progress is increasing her acceptance towards her current position in life and beginning to be more vulnerable. Pt has an outpatient therapist who she will continue to work with after IOP. Pt is anxious about returning to work, but she is also looking forward to seeing how she responds. Reviewed coping skills pt can use both at home and at work. Pt also reminded to advocate for breaks and practice self-care more consistently. Risks/Concerns:: Pt denies any active SI, plan, or intent. Progress Toward Goals/Plan:: Pt will discharge from IOP tx today as pt has accomplished ehr tx goals and no longer meets criteria for IOP level of care. Pt is unable to do IOP aftercare group due to her work schedule, but pt will follow up with her outpatient therapist and psychologist research assistant. Time Stopped:: 09:33
--- NOTE | 2024-07-09 10:10 | BH.SGPN.GN ---
Behaviors/Verbalizations/Mental Status: []Pt alert and oriented, casually dressed and groomed. Eye contact good. Motor activity appropriate. Speech within normal limits. Affect congruent, mood content. Thoughts linear, logical, no signs of hallucinations or delusions. ? Client Response/Progress/Benefit: []Pt responded well to session, attentive and engaged. Pt participated in activity where pts had to guess the celebrity with a known mental health diagnosis and this led to discussion on self-stigma. Group participated in the discussion defining stigma as well as what stigma has kept pt's from doing in their lives. Pt stated mental health stigma has led pt to no being open, honest, and vulnerable about her mental health. Pt admits that she assumes others will not understand her mental health which leads to increased isolation. Pt worked with peers to begin discussion of what reinforces stigma and this was discussed further in the next group. Pt appeared to benefit from learning about the different types of stigma as well as gaining awareness of how stigma as personally impacted pt. Pt will d/c from IOP tx given progress, and continue in individual outpatient tx to maintain mood stability and prevent decompensation. Narrative Note: []
--- NOTE | 2024-07-09 11:10 | BH.SGPN.GN ---
Behaviors/Verbalizations/Mental Status: []Pt alert and oriented, neatly dressed and groomed. Eye contact good. Motor activity appropriate. Speech within normal limits. Affect congruent, mood depressed. Thoughts linear, logical, no signs of hallucinations or delusions. Client Response/Progress/Benefit: [] Pt engaged participant AEB participating in the activity, providing input during small group discussion, and listening attentively to others. Pt appeared to connect with discussion in the benefits of addressing mental health stigma which included: improved relationships, increased willingness to seek help, increased happiness, and improved confidence. Group brainstormed strategies to combat social and perceived stigma. Pt identified that they can contribute to stigma by ?not being open and honest with supports when it comes to my diagnosis.??Pt shared one thing pt can do to combat stigma is ?expressing myself more openly with certain supports at work.? Appeared to benefit from increasing awareness of strategies to combat stigma. Will discharge from IOP today as pt has accomplished her tx goals and no longer meets criteria for IOP level of care. Narrative Note: []
--- NOTE | 2024-07-09 14:11 | BH.DS ---
Discharge Summary Demographics Date of Admission:: 05/17/24 Discharge Date: 07/09/24 Presenting Problems at Admission:: Pt is a 44-year-old female with a history of MDD, AMRITA, and panic disorder who was referred to [facility] tx by herself due to worsening depression and anxiety which is impacting functioning. Pt is currently on FMLA due to her worsening symptoms which include panic attacks resulting in numerous call offs. At admission, pt endorsed poor sleep, low energy, low motivation, hopelessness, anhedonia, isolation, crying spells, and avoidance. Pt had passive thoughts of , but no SI or history of attempts. Pt's symptoms were interfering with her ability to complete ADLs and function at her baseline. Discharge Diagnoses:: Major depressive disorder, recurrent, severe without psychosis F 33.2; Generalized anxiety disorder; Panic disorder; Cluster B traits Reason for Discharge:: Pt has accomplished her tx goals AEB her reduction of DMS-5 symptoms, her self-report of improved functioning and mood, and improved outlook. Pt no longer meets criteria for [facility] level of care and will discharge to outpatient counseling. Treatment Progress During Treatment & Response: Pt has responded well to treatment as evidenced by Pt consistently attending IOP sessions and her reduction of DSM-5 scores since admission. Pt was always attentive and receptive to learning during group and individual sessions. Pt actively applied coping skills outside of IOP and reports overall her mood is improved and she is functioning better than she was several months ago. Pt?s overall symptom reduction is 34% since admission with anger decreasing by 67%, depression decreasing by 38%, and anxiety decreasing by 36%. Pt has increased self-compassion and faced many hard things. Most importantly, Pt has become more vulnerable, flexible, and confident in her abilities. Issues Still to be Addressed:: Self-confidence, social supports, distress tolerance, and negative core beliefs. Discharge Recommendations/Instructions:: Pt will continue to follow up with [facility] for [facility] management. Pt last saw Tom Keating on 07/08/24. Pt sees her individual therapist, [facility], weekly and her next appointment is 07/13/24. Discharge Handout
== END 2024-07-09 12:03 | disposition home or self-care (01) ==
LOC: BHIOP 07:14
PROVIDERS: Visit Provider Psychiatry & Neurology Psychiatry
DX: F33.2 Major depressive disorder, recurrent severe without psychotic features (principal); F41.1 Generalized anxiety disorder; F41.0 Panic disorder [episodic paroxysmal anxiety]
CPT/HCPCS: S9480; 90832; 90853

== ENCOUNTER 2025-01-29 13:30 | Emergency (ER) | payer BC, SELFPAY ==
[2025-01-29 13:30] VITALS: BP 123/94; PULSE 101; RESP 18; TEMP 36.7; O2SAT 99; BMI 43.9
[2025-01-29 13:54] LABS: Absolute Lymphocyte Count 1.79 X10^3/uL (0.83-4.51); Absolute Neutrophil Count 4.6 X10^3/uL (2.0-7.7); Basophil# 0.06 X10^3/uL; Basophil% 0.8 % (0-1); Eosinophils% 2.8 % (0-5); Hematocrit 39.6 % (37-47); Hemoglobin 12.9 g/dL (12.0-15.0); Lymphocyte # 1.79 X10^3/ul (0.83-4.51); Lymphocyte % 24.7 % (19-41); Mean Corp Hgb Conc 32.6 g/dL (32-36); Mean Corpuscular Hgb 25.5 pg (27.0-32.0); Mean Corpuscular Volume 78.3 fL (81-99); Mean Platelet Vol. 8.8 fl (6.2-12.0); Monocyte# 0.48 X10^3/uL; Monocyte% 6.6 % (0-10); NRBC Flagged by Analyzer 0 % (0-5); Neutrophil # 4.61 X10^3/uL (2.7-7.7); Neutrophil % 63.6 % (47-70); Platelet Count 304 K/mm3 (150-450); RBC Distribution Width CV 13.6 % (11.6-14.6); Red Blood Count 5.06 M/mm3 (4.2-5.4); White Blood Count 7.3 K/mm3 (4.4-11.0)
[2025-01-29 14:27] LABS: Internal QC Validated? YES +Cl - CLEAR BKGD; Pregnancy, Serum, hCG Quali. NEGATIVE Negative
[2025-01-29 14:33] LABS: Anion Gap 13 (5-15); BUN 14 mg/dL (4-19); BUN/Creat Ratio 18.4 RATIO (10-20); Calcium 9.1 mg/dL (7.6-11.0); Carbon Dioxide 19.8 mmol/L (22.0-29.0); Chloride 104 mmol/L (96-108); Creatinine, Serum 0.77 mg/dL (0.70-1.20); EST Glomerular Filtration Rate 98 (>60); Estimated Creatinine Clearance 114.82 ml/min; Glucose 138 mg/dL (70-99); Sodium Level 137 mmol/L (133-145)
--- NOTE | 2025-01-29 15:26 | EX.ED.DYSGE1 ---
HPI <JOSELYN Waldrop - Last Filed: 01/29/25 17:36> History of Present Illness Chief Complaint: Suicidal Narrative Narrative: Patient is a 44-year-old female, patient has a long history of mental health issues. Patient has borderline personality disorder, anxiety, depression has been hospitalized in the past. Patient lives with her mother. The patient's mother has had back pain for many months. They recently got an MRI yesterday and the MRI showed multiple lesions to her spine. The patient states since then, she has been crying uncontrollably, has been having intrusive thoughts of wanting not to be around. She has no significant thought of hurting herself. Patient states she is significantly overwhelmed. She has been seeing her therapist as well as her psychiatrist, next appointment for psychiatrist is in 3 days. PFS <JOSELYN Waldrop - Last Filed: 01/29/25 17:36> [facility] Medical History (Updated 01/29/25 @ 17:33 by JOSELYN Waldrop) Panic disorder Generalized anxiety disorder Major depressive disorder, recurrent severe without psychotic features Sleep apnea treated with continuous positive airway pressure (CPAP) Home Medications ?Medication ?Instructions ?Recorded ?Last Taken ?Type cetirizine 10 mg tablet (24Hour 10 mg PO DAILY 05/17/24 Unknown History Allergy) clonazepam 0.5 mg tablet (Klonopin) 0.5 mg PO BID PRN anxiety 05/17/24 Unknown History clonidine HCl 0.2 mg tablet 0.2 mg PO BID 05/17/24 Unknown History desvenlafaxine succinate 100 mg 100 mg PO DAILY 05/17/24 Unknown History tablet,extended release 24 hr (Pristiq) lamotrigine 25 mg tablet (Lamictal) 50 mg PO BID 05/17/24 Unknown History omeprazole 20 mg capsule,delayed 20 mg PO DAILY 05/17/24 Unknown History release trazodone 50 mg tablet 50 mg PO QHS 30 days #30 tabs 06/09/24 Unknown Rx clonidine HCl 0.2 mg tablet 0.2 mg PO BID 4 days #8 tabs 01/29/25 Unknown Rx desvenlafaxine succinate 100 mg 100 mg PO DAILY 5 days #5 tabs 01/29/25 Unknown Rx tablet,extended release 24 hr (Pristiq) Allergy/AdvReac Type Severity Reaction Status Date / Time No Known Allergies Allergy Verified 01/29/25 13:30 Social History Smoking Status: Unknown if ever smoked ROS <JOSELYN Waldrop - Last Filed: 01/29/25 17:36> ROS ED ROS Narrative Constitutional: Negative for fever, chills, weight loss, weakness Eyes: Negative for vision loss, vision change, double vision ENT: Negative for any sore throat, ear pain, congestion Cardiovascular: Negative for any chest pain, tightness, palpitations Respiratory: Negative for any cough, sputum production, hemoptysis, dyspnea, dyspnea on exertion, orthopnea Gastrointestinal: Negative for any abdominal pain, nausea, vomiting, diarrhea, constipation, blood in stool, blood in vomit : Negative for any urinary frequency, dysuria, retention, blood in urine Muscle skeletal: Negative for any neck pain, back pain Neurological: Negative for any headache, syncope, dizziness Skin: Negative for any rashes, itching, abrasions, lacerations Psychiatric: Negative for any homicidal ideation. Positive for anxiety, depression, suicidal ideation Hematologic: Negative for any excessive bruising, easy bleeding EXAM <JOSELYN Waldrop - Last Filed: 01/29/25 17:36> Physical Exam Narrative Exam Narrative: Vital signs reviewed. Patient is tearful, patient is alert and oriented, acting appropriate. Patient on my examination seems to be overwhelmed to this news of her mother having lesions to her spine. Patient states that her mind just cannot stop, she is feeling overwhelmingly sad. She endorses that she does not want to harm herself however it keeps popping up in her mind. Patient is tearful. HEET: Head normocephalic atraumatic, TMs clear bilaterally. Posterior pharynx is clear, moist mucous membranes. Nares clear bilaterally. Neck: Supple with no lymphadenopathy or tenderness. No signs of meningismus. Cardiac: Regular rate and rhythm no murmurs gallops or rubs, equal peripheral pulses bilaterally. Respiratory: Lungs clear to auscultation bilaterally. No chest tenderness. Abdomen: Soft, nontender, nondistended. No abdominal bruit or pulsatile masses. No hepatosplenomegaly Extremities: No peripheral edema, no signs of gross trauma or deformity. Active full range of motion of all extremities. Neuro: Cranial nerves II through XII intact, no focal neurological deficits. Skin: Clean dry and intact with no rash, purpura, petechiae, vesicles or pustules. Backs/flank: No CVA tenderness, no midline spinal tenderness, no deformity. Psych: Patient is tearful, intermittent thoughts of harming herself. Patient has no plan, when asked if the patient needs to be admitted to the hospital she does not believe she does. She thinks that this is secondary to finding other terrific news yesterday. Const Vital Signs: 01/29/25 13:30 01/29/25 15:30 Temperature 98.1 F Temperature Source Temporal Pulse Rate 101 H 83 Respiratory Rate 18 16 Blood Pressure 123/94 H 125/79 H Blood Pressure Mean 103 94 Pulse Ox 99 98 Oxygen Delivery Method Room Air Room Air Positive obese Nutritional Appearance: obese <Dr. April French DO - Last Filed: 02/01/25 07:13> Physical Exam Const Vital Signs: 01/29/25 13:30 01/29/25 15:30 Temperature 98.1 F Temperature Source Temporal Pulse Rate 101 H 83 Respiratory Rate 18 16 Blood Pressure 123/94 H 125/79 H Blood Pressure Mean 103 94 Pulse Ox 99 98 Oxygen Delivery Method Room Air Room Air MDM <JOSELYN Waldrop - Last Filed: 01/29/25 17:36> MDM Lab Data Labs: Laboratory Results - last 24 hr 01/29/25 01/29/25 13:48 15:06 WBC 7.3 RBC 5.06 Hgb 12.9 Hct 39.6 MCV 78.3 L MCH 25.5 L MCHC 32.6 RDW Std Deviation 38.0 RDW Coeff of Tray 13.6 Plt Count 304 MPV 8.8 Immature Gran % (Auto) 1.500 H Neut % (Auto) 63.6 Lymph % (Auto) 24.7 [place] % (Auto) 6.6 Eos % (Auto) 2.8 Baso % (Auto) 0.8 Absolute Neuts (auto) 4.6 Absolute Lymphs (auto) 1.79 Nucleated RBC % 0 Sodium 137 Potassium 4.0 Chloride Direct 104 Carbon Dioxide 19.8 L Anion Gap 13 BUN 14 Creatinine 0.77 Estim Creat Clear Calc 114.82 Est GFR (MDRD) Non-Af 98 BUN/Creatinine Ratio 18.4 Glucose 138 H Calcium 9.1 Serum , Qual NEGATIVE Urine Opiates Screen NEGATIVE U Buprenorphine Qual NEGATIVE Ur Oxycodone Screen NEGATIVE Urine Methadone Screen NEGATIVE Urine Fentanyl Screen NEGATIVE Ur Barbiturates Screen NEGATIVE Ur Phencyclidine Scrn NEGATIVE Ur Amphetamines Screen NEGATIVE U Benzodiazepines Scrn NEGATIVE Urine Cocaine Screen NEGATIVE U Cannabinoids Screen PREUMTIVE POSITIVE Ethyl Alcohol < 10.1 Treatment and Re-Evaluation :: Differential diagnosis includes however is not limited to: Suicidal ideation, homicidal ideation, worsening depression, situational depression, medication noncompliance, drug abuse Patient appears generally well, vital signs are stable, patient is nontoxic-appearing. Presenting to the emergency department for depression, crying, feeling of suicidal ideation secondary to hearing that her mother has lesions to her spine. Patient will receive the workup for psychiatric illness, laboratory values, urinalysis. Patient will speak with the social professionals. At this time, did not pink slip the patient. I believe this is more situational, do not believe that she is a threat to her life at this time. I will reach out to the social work for further evaluation. Patient CBC was unremarkable, chemistries are unremarkable, serum was negative. Patient's drug screen was negative, negative for any alcohol. At this time, after speaking with the social work, the medical staff, the patient is stable for discharge. The patient's father sitting bedside, they are dealing with more of family crisis however they feel comfortable the patient going home. The patient is in higher spirits on my reevaluation. At this time, patient be given oral clonidine here which is her basic dose twice a day. Patient also given a short course of clonidine as well as Pristiq. Patient will follow-up closely with her psychiatrist in 3 to 4 days. She is happy this plan of care. Patient does have a safety plan, and of course will return here for any worsening depression, fever chills, suicidal ideation. All questions were answered, patient stable for discharge. <Dr. April French, DO - Last Filed: 02/01/25 07:13> [facility] Lab Data Attestation: I reviewed the patient's lab results. Labs: Laboratory Results - last 24 hr 01/29/25 01/29/25 13:48 15:06 WBC 7.3 RBC 5.06 Hgb 12.9 Hct 39.6 MCV 78.3 L MCH 25.5 L MCHC 32.6 RDW Std Deviation 38.0 RDW Coeff of Tray 13.6 Plt Count 304 MPV 8.8 Immature Gran % (Auto) 1.500 H Neut % (Auto) 63.6 Lymph % (Auto) 24.7 [place] % (Auto) 6.6 Eos % (Auto) 2.8 Baso % (Auto) 0.8 Absolute Neuts (auto) 4.6 Absolute Lymphs (auto) 1.79 Nucleated RBC % 0 Sodium 137 Potassium 4.0 Chloride Direct 104 Carbon Dioxide 19.8 L Anion Gap 13 BUN 14 Creatinine 0.77 Estim Creat Clear Calc 114.82 Est GFR (MDRD) Non-Af 98 BUN/Creatinine Ratio 18.4 Glucose 138 H Calcium 9.1 Serum , Qual NEGATIVE Urine Opiates Screen NEGATIVE U Buprenorphine Qual NEGATIVE Ur Oxycodone Screen NEGATIVE Urine Methadone Screen NEGATIVE Urine Fentanyl Screen NEGATIVE Ur Barbiturates Screen NEGATIVE Ur Phencyclidine Scrn NEGATIVE Ur Amphetamines Screen NEGATIVE U Benzodiazepines Scrn NEGATIVE Urine Cocaine Screen NEGATIVE U Cannabinoids Screen PREUMTIVE POSITIVE Ethyl Alcohol < 10.1 Treatment and Re-Evaluation :: Differential diagnosis includes however is not limited to: Suicidal ideation, homicidal ideation, worsening depression, situational depression, medication noncompliance, drug abuse Patient appears generally well, vital signs are stable, patient is nontoxic-appearing. Presenting to the emergency department for depression, crying, feeling of suicidal ideation secondary to hearing that her mother has lesions to her spine. Patient will receive the workup for psychiatric illness, laboratory values, urinalysis. Patient will speak with the social professionals. At this time, did not pink slip the patient. I believe this is more situational, do not believe that she is a threat to her life at this time. I will reach out to the social work for further evaluation. Patient CBC was unremarkable, chemistries are unremarkable, serum was negative. Patient's drug screen was negative, negative for any alcohol. At this time, after speaking with the social work, the medical staff, the patient is stable for discharge. The patient's father sitting bedside, they are dealing with more of family crisis however they feel comfortable the patient going home. The patient is in higher spirits on my reevaluation. At this time, patient be given oral clonidine here which is her basic dose twice a day. Patient also given a short course of clonidine as well as Pristiq. Patient will follow-up closely with her psychiatrist in 3 to 4 days. She is happy this plan of care. Patient does have a safety plan, and of course will return here for any worsening depression, fever chills, suicidal ideation. All questions were answered, patient stable for discharge. I have personally performed a face to face assessment of the patient and have reviewed the LUIS Note. I performed a substantive portion of the visit including all aspects of the following. My oliver findings include: History is patient is a 44-year-old female with history of borderline personality disorder, depression and prior psychiatric admissions who currently follows with psychiatry as well as counselor presenting for worsening anxiety and feeling of hopelessness with passive suicidal ideations. She does not have a plan. She has had a lot of stressors with a long history of depression and anxiety but recently found out that her mother had what sounds like bony metastasis and this pushed over the edge. She also notes that she ran out of her anxiety medicine which is worsening her symptoms. Patient evaluated by social work. At this time she does not have any active SI or plan. She has more passive suicidal ideation but voices hope for the future and saying that she wants to be here to help her mother. I do not think she requires emergent inpatient psychiatric evaluation. Will be given a refill for her clonidine as well as Pristiq and given close return precautions. She is comfortable with this plan. She voices a lot of satisfaction with just being able to speak with social work about all of her issues. Discharged home in stable condition. Father is at the bedside who is also comfortable with this plan of care. Other additions or changes: [None] Discharge Plan Triage Chief Complaint: Suicidal ED Midlevel Provider: Bruce Whitney ED Provider: April French Dx/Rx/DC Orders Clinical Impression: Situational anxiety, Depression Instructions: ED Depression Prescriptions: New desvenlafaxine succinate [Pristiq] 100 mg tablet extended release 24 hr 100 mg PO DAILY 5 Days Qty: 5 0RF clonidine HCl 0.2 mg tablet 0.2 mg PO BID 4 Days Qty: 8 0RF No Action desvenlafaxine succinate [Pristiq] 100 mg tablet extended release 24 hr 100 mg PO DAILY clonidine HCl 0.2 mg tablet 0.2 mg PO BID lamotrigine [Lamictal] 25 mg tablet 50 mg PO BID clonazepam [Klonopin] 0.5 mg tablet 0.5 mg PO BID PRN (Reason: anxiety) cetirizine [24Hour Allergy] 10 mg tablet 10 mg PO DAILY omeprazole 20 mg capsule,delayed release(DR/EC) 20 mg PO DAILY trazodone 50 mg tablet 50 mg PO QHS 30 Days Qty: 30 1RF Primary Care Provider: Kayla Schilling Referrals: Kayla Schilling, [facility] [Primary Care Provider] - Activity Restrictions/Additional Instructions: Please follow-up as scheduled. You are given some clonidine as well as Pristiq. Keep blinds communication open, if you feel overwhelmed, any thoughts or feelings of harming yourself, please return Print Language: Thai Disposition Disposition: Home, Self Care Discharge Date/Time: 01/29/25 17:43
[2025-01-29 15:27] LABS: Alcohol, Blood (Medical)-Serum < 10.1 mg/dL (<=10.0)
[2025-01-29 15:30] VITALS: BP 125/79; PULSE 83; RESP 16; O2SAT 98
[2025-01-29 15:42] LABS: Amphetamine Urine NEGATIVE (<1000 ng/mL); Barbiturate Urine NEGATIVE (< 200 ng/mL); Benzodiazepine Urine NEGATIVE (< 200 ng/mL); Buprenorphine Urine NEGATIVE (< 200 ng/mL); Cocaine Urine NEGATIVE (< 300 ng/mL); Fentanyl, Urine NEGATIVE; Methadone Urine NEGATIVE (< 300 ng/mL); Opiates Urine NEGATIVE (< 300 ng/mL); Oxycodone, Urine NEGATIVE (< 100 ng/mL); PCP Urine NEGATIVE (< 25 ng/mL); THC Urine PREUMTIVE POSITIVE (< 50 ng/mL)
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
[2025-01-29] MEDS: cloNIDine HCl 0.2 MG Tablet PO (17:39)
[2025-01-29 17:42] VITALS: BP 128/75; PULSE 87; RESP 16; TEMP 36.8; O2SAT 97
--- NOTE | 2025-01-30 15:08 | CM.ED ---
Social Work: hair worker attempted 24 hour call post-safety plan to check on patient and see how patient is feeling. No answer. hair worker left a message just with her name and number and requested a return call. Adriana Montgomery, CHOCOLATIER, AUTO BODY REPAIRER [employer]
--- NOTE | 2025-01-30 19:37 | CM.ED ---
Social Work: Labor Law Professor made successful phone contact with patient to check on her and see how she is doing. Patient sounded really good on the phone and stated she's feeling better, and stated that talking to this group social worker helped a lot, getting back on her medication helped a lot (patient stated she was able to leaf size picker today) and also stated she's been talking a lot today with both her mom and dad. Patient is looking forward to her appointment with her psychiatrist on Friday as well as touching base with her therapist. Patient continued to report feeling safe and denied any current concerns/needs. Adriana Montgomery, Adriana Montgomery, CONTACT OFFICER, AUDIT CLERKS SUPERVISOR
== END 2025-01-29 17:43 | disposition home or self-care (01) ==
PROVIDERS: Emergency Provider Emergency Medicine; PCP Nurse Practitioner Family; Visit Provider Emergency Medicine
DX: F40.248 Other situational type phobia (principal); F32.A Depression, unspecified; G47.30 Sleep apnea, unspecified; Z99.89 Dependence on other enabling machines and devices
CPT/HCPCS: 80048; 80307; 82077; 84703; 85025; 99283

== ENCOUNTER → 2025-06-08 | Outpatient (CLI) | payer BC, SELFPAY ==
--- NOTE | 2025-06-08 15:22 | NEURO ---
NCS and/or EMG Patient Report Ordering Doctor: Kayla Schilling DATE OF SERVICE: 06/08/25 Adriana presents with numbness, tingling and pain in both hands. Electrodiagnostic findings: Right median motor nerve demonstrates prolonged distal latency with normal amplitude and conduction velocity. Left median motor nerve demonstrates normal distal latency, amplitude and conduction velocity. Ulnar motor response is within normal limits bilaterally. Normal median and ulnar F?waves. Prolonged median sensory latency at the right wrist is noted. Normal left median sensory response. Normal ulnar and radial sensory responses. Needle EMG testing was performed upper limbs. All muscles tested showed no evidence of denervation with normal motor unit action potentials. Electrodiagnostic impression: This is an abnormal study in the upper limbs 1. Electrodiagnostic findings suggestive of right-sided median mononeuropathy. This is consistent with a mild to moderate right carpal tunnel syndrome. There is no electrodiagnostic evidence for a left-sided carpal tunnel syndrome. 2. No electrodiagnostic evidence is noted for cervical radiculopathy. Multi Select Codes Neurology Neurology Interp Codes: 37183-26 Musc test done w/n test comp (interp) (2) and 61495-75 Nr cndj test 11-12 studies (interp)
== END | disposition home or self-care (01) ==
LOC: PSN 08:57
PROVIDERS: PCP Nurse Practitioner Family; Referring Provider Nurse Practitioner Family; Visit Provider Nurse Practitioner Family
DX: R20.0 Anesthesia of skin (principal); R20.2 Paresthesia of skin
CPT/HCPCS: 95886; 95912